=== PATIENT | female | born 1995 | race Caucasian/White ===

== ENCOUNTER 2018-01-04 15:45 | Emergency (ER) | payer OTHER, SELFPAY ==
[2018-01-04 15:46] VITALS: BP 137/89; PULSE 76; RESP 15; TEMP 36.7; O2SAT 98; BMI 20.5
--- NOTE | 2018-01-04 16:05 | ED.DCSUM_ITS ---
- ER Visit Summary Date of Service: 01/04/18 Chief Complaint: Vaginal discharge History of Present Illness: The patient is a 22 F with white foul-smelling vaginal discharge for the past month off and on, initially had some cramps but for the most part no pain. No fevers, nausea, vomiting, urinary symptoms. Last normal menstrual period was 1-2 months ago, as her best estimate, she states she is irregular. She has unprotected intercourse and is concerned about a sexually transmitted disease. Physical Examination: Well-appearing in no distress, afebrile with normal vital signs. Abdomen benign. No CVA tenderness. On pelvic, externally no lesions. Speculum exam shows a thin homogenous white-steen discharge with no evidence of cervicitis. No cervical motion tenderness. Test Results: Wet prep is negative for trichomonas, but did not apparently test for anything else. GC and chlamydia are sent. is negative. Emergency Department Course and Treatment: I am at a higher suspicion of bacterial vaginosis and IM for gonorrhea/chlamydia at this time so we will not give her empiric treatment for those, just a prescription for Flagyl and advised to follow-up. Treatment Plan: Flagyl 500 mg twice daily ?7 days Disposition: Discharge home Impression: Bacterial vaginosis This note was generated with [employer] dictation software. It may contain incorrect words, spelling, and punctuation that were not noted in review of the chart prior to signing ED Disposition - Plan for ED Patient: Disposition: Home or Assisted Living Chief Complaint: Female C/O Instructions: Vaginal Infection: Bacterial Vaginosis Prescriptions: Metronidazole [Flagyl] 500 mg PO BID #14 tab Referrals: NOT,DEFINED [NON-STAFF] - Sarmad De La Vega MD [STAFF PHYSICIAN] - 1 Week if not improving
[2018-01-04 16:51] LABS: Internal QC Validated? YES +Cl - CLEAR BKGD; Pregnancy, Urine Negative Negative
[2018-01-04 18:10] LABS: Chlamydia Trachomatis by PCR Negative (Negative); Neisserai gonorrhoeae by PCR Negative (Negative); Probe Check PASS; Sample Adequacy Control PASS; Specimen Processing Control PASS
--- NOTE | 2018-01-04 18:21 | NURSING ---
ENTERED ROOM TO D/C PT AND THE ROOM WAS EMPTY. ATTEMPTED TO CALL PT WITH NUMBER PROVIDED TO REGISTRATION AND RECORDING THIS IS A NON-WORKING NUMBER SOUNDED. D/C INSTRUCTION AND RX LEFT AT TRIAGE DESK IN CASE PT RETURNS.
== END 2018-01-04 18:22 | disposition home or self-care (01) ==
PROVIDERS: Emergency Provider Emergency Medicine
DX: N76.0 Acute vaginitis (principal)
CPT/HCPCS: 81025; 87210; 87491; 87591; 99282

== ENCOUNTER 2019-04-14 13:52 | Day surgery (SDC) | payer MEDICAID, SELFPAY ==
--- NOTE | 2019-04-05 18:08 | PCM.HP.BLA ---
History and Physical Date of Admission: 04/14/19 Pre-Op History and Physical ? HPI: The patient is a 23 year old female presenting for pre-operative visit. She is scheduled for?hysteroscopy with dilation and curettage and polyp resection, for?abnormal uterine bleeding and uterine mass on?04/14/19. ??Procedure discussed along with risks, benefits and complications. ?Other alternatives discussed for management. Consent form signed??Yes.? PAST?MEDICAL?HISTORY PAST MEDICAL HISTORY Diagnosis Date ? Acne vulgaris: Grade III (occ. Gr.IV) Inflammatory and Comedonal: Face>chest//back/shoulders 08/06/2012 ? ADHD (attention deficit hyperactivity disorder) 11/11/2011 ? Depression 05/22/2014 ? NEGATIVE MEDICAL HISTORY ? ? normal color vision ? Nevus 12/31/2011 ? Oppositional defiant disorder 09/23/11 ? VSD ? ? Dr. Pacheco--ok for all activities ?04/13/09 ? ? PAST?SURGICAL?HISTORY PAST SURGICAL HISTORY Procedure Laterality Date ? BLOOD TRANSFUSION ? 02/25/2019 ? EXTRACTION ERUPTED TOOTH/EXR ? 2015 ? ? CURRENT?MEDICATIONS Current Outpatient Medications Medication Sig Dispense Refill ? .03/03, 28, 1.5 mg-30 mcg (21)/75 mg (7) tablet Take 1 tablet by mouth once daily. ? 5 ? mirtazapine (REMERON) 15 mg tablet Take 15 mg by mouth daily at bedtime. ? 0 ? cloNIDine HCl (CATAPRES) 0.1 mg tablet Take 0.1 mg by mouth twice daily. ? ? ? buprenorphine-naloxone (SUBOXONE) 8-2 mg film Dissolve under the tongue once daily. ? ? ? medroxyPROGESTERone (PROVERA) 10 mg tablet Take 1 tablet by mouth once daily. (Patient not taking: Reported on 04/05/2019 ) 20 tablet 0 ? LORazepam (ATIVAN) 0.5 mg tab Take 1 tablet by mouth twice daily as needed (anxiety (not daily)). (Patient not taking: Reported on 03/09/2019 ) 30 tablet 0 ? No current facility-administered medications for this visit.? ? ALLERGIES:?Patient has no known allergies. ? PERSONAL HISTORY:? SOCIAL?HISTORY Social History ??Socioeconomic History ?Marital status: ?Spouse name: [place] ?Number of children: 0 ?Years of education: 8 ?Highest education level: Not on file ??Social Needs ?Financial resource strain: Not on file ?Food insecurity - worry: Not on file ?Food insecurity - inability: Not on file ?Transportation needs - medical: Not on file ?Transportation needs - non-medical: Not on file ??Occupational History ?Occupation: Unemployed ??Tobacco Use ?Smoking status: Current Every Day Smoker ?Packs/day: 0.50 ?Smokeless tobacco: Never Used ?Tobacco comment: started smoking age 18 ??Substance and Sexual Activity ?Alcohol use: Not Currently ?Drug use: Not Currently ?Types: Marijuana ?Sexual activity: Not Currently ?Partners: Male ? control/protection: None ??Other Topics ?Concerns: ?Not on file ??Social History Narrative ?Not on file ? FAMILY HISTORY:? FAMILY?HISTORY FAMILY HISTORY Problem Relation Age of Onset ? Heart Father ?murmur ? Psychiatry Brother ?adhd ? other (Other) Mother ?narcolepsy ? Diabetes Maternal Grandmother ? ? other (Rheumatic fever) Paternal Grandfather ? ? Psychiatry Maternal Grandfather ?depression ? No Known Problems Sister ? ? Cancer Paternal Grandmother ?ovarian ? No Known Problems Brother ? ? No Known Problems Brother ? ? No Known Problems Brother ? ? REVIEW OF SYMPTOMS: GENERAL: denies fevers or chills ENDOCRINOLOGY: has not been on steroids Cardiology : denies palpitations or chest pain Respiratory: denies SOB or cough Hematology: denies history of prolonged bleeding or easy bruising or VTE Allergy: Denies history of personal or family history of allergy to anesthesia ? ? PHYSICAL EXAMINATION: ? VITALS:?There were no vitals taken for this visit. ? GENERAL:??The patient is well nourished, well hydrated in no acute distress. ?, The patient is oriented to time, place, and person. NECK:?Supple. No lynphadenopathy, normal thyroid, no thyromegaly. LUNGS:?Clear to auscultation bilaterally. no wheezes, rhonchi or rales HEART:?Regular rate and rhythm, Normal heart sounds and No murmurs or gallops ? Pelvic US: 03/14/19: Report Summary: Overall impression: Anteverted uterus that is normal in size and contour The EMS in 28 mm Normal right ovary Normal left ovary No free fluid in pelvic CDS. Recommendations / therapy: Consider hysteroscopic evaluation given endometrial thickness of 28 mm. Clinical correlation. Indication: irregular periods. Menorrhagia. History: Last menstrual period: 12/12/2018. Cycle length: 7 days to 90 days. Gynecological History: Bleedin days. Abnormal. Gynecological Ultrasonography: Uterus: anteverted. Size: Longitudinal 84 mm. Anterio- posterior 47 mm. Transverse 60 mm. Volume: 124.0 ml. Endometrium thickness total: 28.2 mm. Right Ovary: visible. Outline: smooth. Morphology: polycystic. Right Ovary size: 47 mm x 33 mm x 29 mm. Volume: 23.6 ml. Left Ovary: visible. Outline: smooth. Morphology: polycystic. Left Ovary size: 37 mm x 27 mm x 23 mm. Volume: 12.0 ml. Cul de Sac / Pouch of Lukas: no free fluid visible.? ? IMPRESSION:?Abnormal uterine bleeding, chronic blood loss iron deficiency anemia, endometrial mass ? PLAN:???The risks/benefits/alternatives and personal involved for the planned?hysteroscopy dilation and curettage and uterine mass resection?were reviewed with the patient. Her questions were answered to her satisfaction and she desires to proceed. ?Consent was signed. ?I reviewed with her postop instructions and expectations. Pretreatment with Cytotec. ?Patient with opioid use disorder, will try to avoid narcotic and benzodiazepine use. ? I have reviewed and updated past medical and surgical history, medications and allergies. this history and physical was performed in my office on 04/05/19 Brianna Smart M.D.
[2019-04-14] VITALS (7 sets, daily range): BP systolic 96–122; BP diastolic 66–89; PULSE 58–70; RESP 16–18; TEMP 36.6–36.8; O2SAT 96–100; BMI 24.2
[2019-04-14 14:46] LABS: Hematocrit 29.6 % (37-47); Mean Corp Hgb Conc 30.4 g/gl (32-36); Mean Corpuscular Hgb 23.9 pg (27.0-32.0); Mean Corpuscular Volume 78.7 fL (81-99); Mean Platelet Vol. 8.2 fl (6.2-12.0); Platelet Count 332 K/mm3 (150-450); RBC Distribution Width CV 22.8 % (11.6-14.6); RBC Distribution Width SD 65.1 fl (35.1-43.9); Red Blood Count 3.76 M/mm3 (4.2-5.4); White Blood Count 3.6 K/mm3 (4.4-11.0)
[2019-04-14 14:49] LABS: Internal QC Validated? YES +Cl - CLEAR BKGD; Pregnancy, Serum, hCG Quali. NEGATIVE Negative; Scan Indicated on CBC? Y/N YES- FLAGS NOTED
--- NOTE | 2019-04-14 15:30 | EMB_PTH ---
PATIENT: YVONNE HENRY LOC: [facility] [place][id number] AGE/SX: 23/F ROOM: RE04/14/[address]: Dr. Brianna Smart MD : [id number] BED: DIS: 04/14/2019 SPEC #: [id number] RECD: 04/15/19 07:43 STATUS: PIPO PARAS #: [id number] MEAGHAN: 04/14/19 15:[address]: Brianna Smart DEPT: SURGICAL PATHOLOGY RECD BY: Trav Gross ENTERED: 04/15/19 11:43 SP TYPE: ENDOM BX/C SERGO DR: No Primary Care Phys Tissues: Endometrium, NOS Procedures: Surgery Specimen Level IV HEADER OPERATION: Hysteroscopy, D & C PRE-OP DIAGNOSIS: Abnormal uterine bleeding, chronic blood loss, iron deficiency anemia, endometrial mass TISSUE SUBMITTED: Endometrial curettings MICROSCOPIC DIAGNOSIS Endometrial curettings: Proliferative endometrium. Fragments of myometrium. Fragments of benign ecto- and endocervical mucosa with chronic inflammation and squamous metaplasia. See comment. WENDY:gregory 04/18/19 COMMENT The myometrial fragments may represent fragments of submucosal leiomyoma. Clinical correlation and appropriate follow up are necessary. MICROSCOPIC DESCRIPTION Slides are reviewed. GROSS DESCRIPTION Received in fixative is one container labeled with the patient's name and designated endometrial curettings. The specimen consists of multiple irregular fragments of woodward-pink soft tissue that in aggregate measure 3 x 2.5 x 0.2 cm. The entire specimen is submitted in one cassette. / WENDY:gregory 04/15/19 TC:5 CPT: 99186
[2019-04-14 16:26] LABS: Differential Comment SCANNED
--- NOTE | 2019-04-14 17:01 | DCINST_ITS ---
Discharge Diet: No Restrictions Discharge Activity: Return to Normal Activity, May Shower, May Take a Tub Bath - in 2 weeks. May resume sexual activity in: 2 weeks Call your doctor if your incision/area has: Sudden Increased Bleeding, Foul Smelling Discharge Call your doctor if you observe: Fever of 101 or Higher, Using more than one pad per hour Additional Instructions: no tampons, douching or intercourse for 2 weeks. No swimming for 2 weeks Allergies/Adverse Reactions: Allergies No Known Allergies Allergy (Verified 04/12/19 15:07) Medications to take at Discharge Buprenorphine HCl/Naloxone HCl [Suboxone 12 mg-3 mg Sl Film] 1 ea SL TID 04/12/19 Clonidine HCl [Clonidine HCl ER] 0.1 mg PO 4X/DAY 04/12/19 Mirtazapine [Remeron] 1.5 tab PO QHS 04/12/19 Multivit-Minerals/Folic Acid [Women's Multivitamin Gummies] 200 mcg PO DAILY 04/12/19 hydrOXYzine pamoate capsule [Vistaril pamoate capsule] 25 mg PO 4X/DAY PRN 04/12/19 Ibuprofen [Motrin] 600 mg PO Q6H PRN #60 tab 04/14/19 The following prescriptions were given: Ibuprofen [Motrin] 600 mg PO Q6H PRN #60 tab PRN Reason: Pain Transmission Status: Pending to [id number] Primary Care Physician: Care Physician,No Primary [Primary Care Provider] - Test Results: Test results from this visit will be discussed in further detail at your follow- up appointment, if applicable. Please Follow Up With: Brianna Smart MD - [phone] When: 2 weeks or as needed
--- NOTE | 2019-04-14 17:21 | OP.PCM_ITS ---
Report of Operation Date of Procedure: 04/14/19 Pre-Operative Diagnosis: AUB, anemia due to chronic blood loss, uterine mass Post-Operative Diagnosis: same Surgery/Procedure Performed:: hysteroscopy with visual curetage Description of Surgical Findings:: normal endometrial cavity and cervix and vagina thread spooler: None Type of Anesthesia:: MAC/Supplemental/Local Anesthesiologist: Estrellita Singh Special Medications: none Specimen's removed: endometrial curettings Drains: none Estimated Blood Loss (mL): 10 Fluids Replaced: 800 Description of Procedure: The patient was taken to the OR where she was prepped and draped in dorsal lithotomy position. The weighted speculum was placed in the vagina and the anterior lip of the cervix was grasped with a single-tooth tenaculum. The cervix was dilated serially with Hegar dilators. The symphion hysteroscope was placed into the uterine cavity and the above findings were noted. Bilateral tubal ostia [were] identified. The hysteroscope was removed. The Symphion device was readied and inserted. A brief curettage of the endometrial cavity was performed using the Symphony on device. The instruments were removed from the vagina. The specimen was handed off and sent to pathology. All sponge and needle counts were correct. Vaginal sweep was performed by me. The patient was awakened and taken to the recovery room in stable condition. Hysteroscopic fluid deficit was 350 cc of normal saline. There were no endometrial polyps, fibroids or focal abnormalities. There is normal atrophic appearing endometrium. Grafts/Implants Used: none - Complications none - Admit VTE Documentation VTE Present on Admission: No VTE Mechan Device Prophylaxis: SCD's VTE Pharm Prophylaxis ordered?: No Reason prophylaxis not ordered:: Procedure Not Indicated
== END 2019-04-14 19:00 | disposition home or self-care (01) ==
LOC: SDC 13:54 → AC 13:55
PROVIDERS: Referring Provider Obstetrics & Gynecology; Visit Provider Obstetrics & Gynecology
PROC: 0UB98ZZ Excision of Uterus, Via Natural or Artificial Opening Endoscopic (ICD-10-PCS; CPT 58558; principal; 2019-04-14 15:20)
DX: N92.0 Excessive and frequent menstruation with regular cycle (principal); D50.0 Iron deficiency anemia secondary to blood loss (chronic); F11.10 Opioid abuse, uncomplicated; N93.9 Abnormal uterine and vaginal bleeding, unspecified; F17.210 Nicotine dependence, cigarettes, uncomplicated; F91.3 Oppositional defiant disorder; F90.9 Attention-deficit hyperactivity disorder, unspecified type; F32.9 Major depressive disorder, single episode, unspecified
CPT/HCPCS: 00952; 58558; 84703; 85027; 86850; 86900; 88305; J7120

== ENCOUNTER 2019-08-14 03:45 | Emergency (ER) | payer MEDICAID, SELFPAY ==
[2019-04-14 14:21] VITALS: BMI 24.2
[2019-08-14 03:46] VITALS: BP 129/86; PULSE 123; RESP 15; TEMP 37.2; O2SAT 96; BMI 24.2
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
--- NOTE | 2019-08-14 04:53 | ED.RN ---
PT LEFT DEPARTMENT WITHOUT DISCHARGE INSTRUCTIONS
== END 2019-08-14 04:54 | disposition home or self-care (01) ==
PROVIDERS: Emergency Provider Emergency Medicine
DX: S09.90XA Unspecified injury of head, initial encounter (principal); Y04.2XXA Assault by strike against or bumped into by another person, initial encounter; Y92.9 Unspecified place or not applicable; Y99.9 Unspecified external cause status; F17.200 Nicotine dependence, unspecified, uncomplicated
CPT/HCPCS: 99282

== ENCOUNTER → 2020-04-13 | Outpatient (CLI) | payer MEDICAID, SELFPAY ==
[2020-04-13 09:04] VITALS: BMI 24.2
--- NOTE | 2020-04-13 09:37 | RAD_ITS ---
STUDY: X-RAY - LEFT FOOT CLINICAL: Female, 24 years old. FOOT AND ANKLE PAIN AND SWELLING, NO TRAUMA TECHNIQUE: 3 view(s) of the foot. COMPARISON: None. FINDINGS: Normal talus, calcaneus, and tarsal bones. Normal visualized subtalar, talonavicular, calcaneocuboid, tarsal and tarsometatarsal articulations. Normal metatarsi. Normal metatarsophalangeal joint of the great toe. Normal tibial and fibular sesamoid bones. Normal interphalangeal joint of the great toe. Normal phalanges of the great toe. Normal second through fifth metatarsophalangeal joints. Normal interphalangeal joints and phalanges of the lesser toes. Diffuse soft tissue swelling. RAD/Foot min 3 Views IMPRESSION: Diffuse soft tissue swelling. Electronically Signed: Angel Tejeda, at 9:52 EDT , Service support ,
--- NOTE | 2020-04-13 09:37 | RAD_ITS ---
STUDY: X-RAY - LEFT ANKLE REASON FOR EXAM: Female, 24 years old. FOOT AND ANKLE SWELLING AND PAIN, NO TRAUMA TECHNIQUE: 3 view(s) of the ankle. COMPARISON: None. FINDINGS: Normal visualized distal tibia and fibula. Normal medial and lateral malleoli. Normal tibiotalar articulation and ankle mortise. Normal visualized talus and calcaneus. The visualized subtalar, talonavicular, calcaneocuboid and tarsal articulations are normal. Diffuse soft tissue swelling. RAD/Ankle min 3 Views IMPRESSION: Diffuse soft tissue swelling. Electronically Signed: Angel Tejeda, at 9:52 EDT , Service support ,
[2020-04-13 15:17] LABS: Absolute Neutrophil Count 3.2 X10^3/uL (2.0-7.7); Basophil# 0.06 X10^3/uL; Eosinophil# 0.45 X10^3/uL; Eosinophils% 7.5 % (0-5); Hematocrit 28.1 % (37-47); Hemoglobin 8.3 g/dL (12.0-15.0); Lymphocyte % 28.4 % (19-41); Mean Corp Hgb Conc 29.5 g/dL (32-36); Mean Corpuscular Hgb 27.5 pg (27.0-32.0); Mean Platelet Vol. 8.5 fl (6.2-12.0); Monocyte# 0.54 X10^3/uL; NRBC Flagged by Analyzer 0 % (0-5); Neutrophil # 3.22 X10^3/uL (2.7-7.7); Neutrophil % 53.9 % (47-70); Platelet Count 508 K/mm3 (150-450); RBC Distribution Width CV 17.4 % (11.6-14.6); Red Blood Count 3.02 M/mm3 (4.2-5.4)
[2020-04-13 15:33] LABS: Erythrocyte Sedimentation Rate 77 mm/hr (0-20)
[2020-04-13 15:37] LABS: ALB/GLOB Ratio 0.4 RATIO (0.9-2.4); AST(SGOT) 17 U/L (15-37); Alanine Aminotransfer ALT/SGPT 13 U/L (13-56); Albumin, Serum 2.8 g/dL (3.2-5.0); Alkaline Phosphatase 36 U/L (45-117); Anion Gap 8 (5-15); BUN 11 mg/dL (7-18); BUN/Creat Ratio 20.1 RATIO (10-20); Calcium,Total 10.7 mg/dL (8.5-10.1); Chloride 99 mmol/L (98-107); Creatinine, Serum 0.55 mg/dL (0.55-1.02); EST Glomerular Filtration Rate 144 mL/min (>60); Est Glom Filt Rate - Afr Amer 175 mL/min (>60); Globulin 6.7 g/dL (2.2-4.2); Glucose 105 mg/dL (74-106); Potassium 3.8 mmol/L (3.5-5.1); Protein, Total 9.5 g/dL (6.4-8.2); Sodium Level 135 mmol/L (136-145)
[2020-04-16 11:11] LABS: ANTINUCLEAR ANTIBODIES DIRECT Negative (Negative)
[2020-04-19 14:33] LABS: HLA B27 Negative (.)
== END | disposition home or self-care (01) ==
PROVIDERS: Referring Provider Physician Assistant; Visit Provider Physician Assistant
DX: M25.572 Pain in left ankle and joints of left foot (principal); M25.472 Effusion, left ankle
CPT/HCPCS: 36415; 73610; 73630; 80053; 81374; 85025; 85652; 86038; 86140

== ENCOUNTER → 2020-04-19 | Outpatient (CLI) | payer MEDICAID, SELFPAY ==
[2020-04-13 09:04] VITALS: BMI 24.2
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
== END | disposition home or self-care (01) ==
LOC: CT 17:43
PROVIDERS: Referring Provider Physician Assistant; Visit Provider Physician Assistant
DX: M25.472 Effusion, left ankle (principal); M25.572 Pain in left ankle and joints of left foot
CPT/HCPCS: 73700

== ENCOUNTER 2021-03-05 14:45 | Inpatient (IN) | payer MEDICAID, SELFPAY ==
[2020-07-31 15:14] VITALS: BMI 23.0
[2021-03-05] VITALS (12 sets, daily range): BP systolic 86–106; BP diastolic 52–64; PULSE 110–136; RESP 18–36; TEMP 37.7–39.1; O2SAT 94–100; BMI 18.3; BMI 24.5
--- NOTE | 2021-03-05 15:02 | EKG12_ITS ---
Test Reason : SOB Blood Pressure : / mmHG Vent. Rate : 123 BPM Atrial Rate : 123 BPM P-R Int : 114 ms QRS Dur : 082 ms QT Int : 306 ms P-R-T Axes : 060 -06 038 degrees QTc Int : 438 ms Sinus tachycardia Possible Biatrial Enlargement Poor R wave progression Borderline ECG Confirmed by JANIA COTTER, RANDOLPH ([id number]), dictionary editor MELISSA ANDRADE ([id number]) on 03/07/2021 12:32:08 PM Referred By: SUSAN Confirmed By:RANDOLPH DYKES MD
--- NOTE | 2021-03-05 15:07 | EDS_ITS ---
HPI History of Present Illness Chief Complaint: Shortness of Breath Informant: patient Onset/Context/Timing Onset: Days Context: Gradual Onset Current Severity: Moderate Maximum Severity: Moderate Narrative Narrative: Patient reports a 3 to 4-day history of bilateral lower extremity edema and pain along with general weakness, cough, and shortness of breath. She states has not been able to get up and take care of herself because of her lower leg swelling. She finally called family today to come help her. She denies any known exposure to Covid. She does have a pacemaker that she states was placed approximately a year ago after an infection attacked my whole body. [facility] Medical History (Updated 03/05/21 @ 22:[address] Sue Lerner MD) Anxiety Depression Osteoporosis Pacemaker Smoker Substance abuse Allergy/AdvReac Type Severity Reaction Status Date / Time No Known Allergies Allergy Verified 03/05/21 14:45 Social History (Updated 03/05/21 @ 15:[address] Sue Lerner MD) Smoking Status: Current every day smoker tobacco type: cigarettes alcohol intake: never substance use type: does not use ROS ROS ED Constitutional Constitutional ED: Denies chills or fever(s) Eyes Eyes: Denies change in vision ENT ENT ED: Denies sore throat Cardiovascular Cardiovascular: Denies chest pain Respiratory/Chest Respiratory/Chest: Reports cough and dyspnea Gastrointestinal Gastrointestinal: Denies abdominal pain, diarrhea, nausea or vomiting Genitourinary Genitourinary ED: Denies dysuria Musculoskeletal Musculoskeletal: Reports arthralgias, myalgias and other Details: Lower extremity pain and swelling Integumentary Denies rash Neurologic Neurologic: Denies headache(s) or weakness Psychiatric Psychiatric: Denies anxiety or depression Endocrine Endocrinology: Denies polydipsia or polyuria Allergic/Immunologic Allergic/Immunologic ED: Denies urticaria EXAM Physical Exam Const Vital Signs: 03/05/21 14:47 03/05/21 15:30 03/05/21 16:50 Temperature 100.1 F H 100.2 F H Temperature Source Temporal Oral Pulse Rate 136 H 120 H Respiratory Rate 18 28 H Respiratory Effort Non-Labored Respiratory Pattern Tachypnea Blood Pressure 95/62 86/59 L Blood Pressure Mean 73 68 Pulse Ox 97 100 Oxygen Delivery Method Room Air Room Air 03/05/21 18:00 03/05/21 19:31 03/05/21 20:13 Temperature 100.2 F H 100.4 F H 99.9 F H Temperature Source Oral Oral Oral Pulse Rate 110 H 118 H 110 H Respiratory Rate 30 H 20 H 20 H Respiratory Effort Respiratory Pattern Blood Pressure 96/55 L 91/52 L 91/58 L Blood Pressure Mean 68 65 69 Pulse Ox 96 95 95 Oxygen Delivery Method Room Air Room Air Room Air 03/05/21 20:14 Temperature 99.9 F H Temperature Source Oral Pulse Rate 110 H Respiratory Rate 20 H Respiratory Effort Respiratory Pattern Blood Pressure 91/58 L Blood Pressure Mean 69 Pulse Ox 95 Oxygen Delivery Method Room Air Positive well nourished and unkempt General Appearance ED: unkempt HEENT Reports normocephalic and head/scalp atraumatic Eyes PERRL and EOMs intact bilaterally Neck supple Chest Wall inspection of chest normal and palpation of chest normal Resp normal respiratory effort and clear to auscultation bilaterally Cardio regular rhythm Rate: tachycardic GI non-tender Auscultation: hypoactive bowel sounds Palpation: soft Extremity Extremity Narrative: 2+ bilateral lower extremity edema, symmetric. Palpable distal pulses. 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 EKG, chest x-ray, labs, Covid test all obtained. Patient was given Tylenol for fever. Lab Data Attestation: I reviewed the patient's lab results. Labs: Laboratory Results - last 24 hr 03/05/21 03/05/21 03/05/21 16:55 17:15 17:15 WBC 12.0 H RBC 4.09 L Hgb 11.9 L Hct 34.7 L MCV 84.8 MCH 29.1 MCHC 34.3 RDW Std Deviation 41.8 RDW Coeff of Yaima 13.5 Plt Count 39 L* MPV TNP Neut % (Auto) Not Reportable Absolute Neuts (auto) 10.6 H Absolute Lymphs (auto) 0.72 L Total Counted 100 Neutrophils % (Manual) 83 H Band Neutrophils % 5 Lymphocytes % (Manual) 6 L Monocytes % (Manual) 4 Myelocytes % 1 H Plasma Cell % (Manual) 1 Diff Path Review May foll Platelet Estimate MKD DEC D-Dimer Quant (PE/DVT) 14.36 H* Sodium Potassium Chloride Carbon Dioxide Anion Gap BUN Creatinine Estim Creat Clear Calc Est GFR (MDRD) Af Amer Est GFR (MDRD) Non-Af BUN/Creatinine Ratio Glucose Calcium Total Bilirubin Direct Bilirubin AST ALT Alkaline Phosphatase Troponin I Total Protein Albumin Globulin Serum , Qual NEGATIVE 03/05/21 17:15 WBC RBC Hgb Hct MCV MCH MCHC RDW Std Deviation RDW Coeff of Yaima Plt Count MPV Neut % (Auto) Absolute Neuts (auto) Absolute Lymphs (auto) Total Counted Neutrophils % (Manual) Band Neutrophils % Lymphocytes % (Manual) Monocytes % (Manual) Myelocytes % Plasma Cell % (Manual) Diff Path Review Platelet Estimate D-Dimer Quant (PE/DVT) Sodium 129 L Potassium 3.1 L Chloride 95 L Carbon Dioxide 23.0 Anion Gap 11 BUN 34 H Creatinine 1.03 H Estim Creat Clear Calc 65.77 Est GFR (MDRD) Af Amer 84 Est GFR (MDRD) Non-Af 69 BUN/Creatinine Ratio 33.0 H Glucose 125 H Calcium 8.2 L Total Bilirubin 3.50 H Direct Bilirubin 2.27 H AST 69 H ALT 25 Alkaline Phosphatase 52 Troponin I 0.016 Total Protein 6.8 Albumin 2.4 L Globulin 4.4 H Serum , Qual Radiography Chest X-Ray - ED: 1 View, Read by ED Physician, Right Infiltrate and Left Infiltrate Diagnostic Testing: Radiology Impression Venous Doppler Study 03/05/21 15:07 Interpretation Summary No evidence for acute deep venous thrombosis bilateral lower extremities with patent and compressible bilateral great saphenous veins. Abbreviated COVID-19 protocol utilized Ordering Physician: Sue Lerner Performed By: Nicol Chow, RVT Chest X-Ray 03/05/21 16:25 IMPRESSION: Suspect bilateral pneumonia and CT may be useful. Electronically Signed: Chano Gibbons MD at 16:56 EDT Tel , Service support , Chest CTA 03/05/21 18:26 IMPRESSION: CTA chest examination, without a demonstrated pulmonary embolism or arterial dissection. Bilateral nodular infiltrates. Electronically Signed: Kunal Hinds MD at 19:56 EDT , Service support , EKG Initial EKG: Attestation: I personally reviewed and interpreted this EKG as follows: Interpretation: Sinus Tachycardia (Sinus tach at 123. No acute ST change.) Treatment and Re-Evaluation Comments:: Patient was a extremely difficult IV stick and this caused a delay in obtaining blood work. Covid test returned negative. Bilateral lower extremity ultrasounds revealed no evidence of DVT. Patient is hyponatremic, hypokalemic. Patient is given oral potassium. CTA of the chest is obtained secondary to elevated D-dimer. This reveals bilateral pneumonia. No evidence of PE. Patient is treated with antibiotics and IV fluids. Patient discussed with hospitalist for admission. Discharge Plan Triage Chief Complaint: Shortness of Breath ED Provider: Sue Lerner Dx/Rx/DC Orders Clinical Impression: Pneumonia Primary Care Provider: Care Physician,No Primary Disposition Disposition: [facility]
--- NOTE | 2021-03-05 15:07 | VDLE_ITS ---
Reason For Study: Pain RIGHT LEFT GSV is normal. GSV is normal. CFV, FV and PopV are compressible. CFV, FV and PopV are compressible. T/P Trunk is compressible. T/P Trunk is compressible. PTV is compressible. PTV is compressible. RT PerV is compressible. LT PerV is compressible. Procedure This is a venous duplex using B-mode, color flow and spectral Doppler. Exam performed portable in ED. The exam was abbreviated due to the COVID 19 protocol. A preliminary report was called and/or faxed to ED. VL/Venous Duplex US - Devyn Extrem Interpretation Summary No evidence for acute deep venous thrombosis bilateral lower extremities with p atent and compressible bilateral great saphenous veins. Abbreviated COVID-19 protocol uti lized Ordering Physician: Sue Lernre Performed By: Nicol Chow RVT
--- NOTE | 2021-03-05 15:10 | NURSING ---
NO OLD EKGS
[2021-03-05] MEDS: Acetaminophen 325 MG Tablet 650 MG PO ×2 (15:25→20:50)
--- NOTE | 2021-03-05 16:23 | ED.RN ---
unable to get iv access. pt hx iv drug abuse and veins scarred up. 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 pt child like in demeanor. wanting to hold mothers hand while getting poked. lt foot red swollen and hot to touch. b/l dupplex being done at this time. pt denies shooting up in foot.
--- NOTE | 2021-03-05 16:25 | RAD_ITS ---
STUDY: X-RAY CHEST REASON FOR EXAM: Female, 25 years old. sob TECHNIQUE: Single AP portable view of the chest. COMPARISON: None. FINDINGS: Status post median sternotomy. Patchy alveolar opacities in both lungs worrisome for pneumonia. CT may be useful. There is no demonstrated pleural abnormality. Normal size heart. Normal mediastinum and shaw. Normal visualized pulmonary arteries. Normal visualized aortic arch and descending thoracic aorta. Normal visualized thoracic spine. Normal visualized ribs, clavicles, and shoulders. There is no demonstrated abnormality of the visualized soft tissue structures of the upper abdomen. RAD/Chest 1 View (Portable) IMPRESSION: Suspect bilateral pneumonia and CT may be useful. Electronically Signed: Chano Gibbons MD at 16:56 EDT Tel , Service support ,
[2021-03-05] MEDS: 0.9% Normal Saline 1,000 ML 250 ML IV ×2 (17:21→21:03)
[2021-03-05 17:36] LABS: Internal QC Validated? YES +Cl - CLEAR BKGD; Pregnancy, Serum, hCG Quali. NEGATIVE Negative
[2021-03-05 17:40] LABS: Hematocrit 34.7 % (37-47); Hemoglobin 11.9 g/dL (12.0-15.0); Mean Corp Hgb Conc 34.3 g/dL (32-36); Mean Corpuscular Hgb 29.1 pg (27.0-32.0); Mean Corpuscular Volume 84.8 fL (81-99); POSITIVE COUNT YES; POSITIVE MORPHOLOGY YES; RBC Distribution Width CV 13.5 % (11.6-14.6); RBC Distribution Width SD 41.8 fl (35.1-43.9); Red Blood Count 4.09 M/mm3 (4.2-5.4)
[2021-03-05 17:59] LABS: AST(SGOT) 69 U/L (15-37); Alanine Aminotransfer ALT/SGPT 25 U/L (13-56); Albumin, Serum 2.4 g/dL (3.2-5.0); Alkaline Phosphatase 52 U/L (45-117); Anion Gap 11 (5-15); BUN 34 mg/dL (7-18); Bilirubin, Direct 2.27 mg/dL (0.00-0.30); Calcium,Total 8.2 mg/dL (8.5-10.1); Chloride 95 mmol/L (98-107); Creatinine, Serum 1.03 mg/dL (0.55-1.02); EST Glomerular Filtration Rate 69 mL/min (>60); Est Glom Filt Rate - Afr Amer 84 mL/min (>60); Estimated Creatinine Clearance 65.77 ml/min; Globulin 4.4 g/dL (2.2-4.2); Glucose 125 mg/dL (74-106); Potassium 3.1 mmol/L (3.5-5.1); Protein, Total 6.8 g/dL (6.4-8.2); Sodium Level 129 mmol/L (136-145)
[2021-03-05 18:19] LABS: Neutrophil-Band 5 % (0-5); Neutrophil-Segmented 83 % (47-70); Total Cells Counted 100 (MANUAL DIFF)
[2021-03-05] MEDS: Potassium Chloride Oral Tablet 20 MEQ 40 MEQ PO (18:19)
[2021-03-05 18:20] LABS: Lymphocyte 6 % (19-41); Monocyte 4 % (0-10); Myelocyte 1 % (0-0); Plasma Cell 1 %
[2021-03-05 18:22] LABS: D-Dimer Quantitative (DVT/PE) 14.36 FEU/ug/m (0.27-0.49); Platelet Count 39 K/mm3 (150-450)
[2021-03-05 18:23] LABS: Differential Indicated MANUAL DIFF
[2021-03-05 18:24] LABS: Absolute Lymphocyte Count 0.72 X10^3/uL (0.83-4.51); Absolute Neutrophil Count 10.6 X10^3/uL (2.0-7.7)
--- NOTE | 2021-03-05 18:26 | CT_ITS ---
STUDY: CTA CHEST REASON FOR EXAM: Female, 25 years old. Shortness of breath. Leg swelling RADIATION DOSAGE (If Supplied By Facility): CTDIvol = ( 6.31 ) mGy, DLP = ( 107.01 ) mGycm TECHNIQUE: The examination was performed with the intravenous administration of 75mL Isovue-370. Post-processing of the angiographic images was performed, with multiplanar reformation and 3D reconstruction. Individualized dose optimization techniques were used for this CT. COMPARISON: Chest x-ray FINDINGS: Normal enhancement of the main pulmonary artery and right and left pulmonary arteries. Normal enhancement of the bilateral peripheral pulmonary arteries. There is no demonstrated pulmonary embolism. There is prominence of the main pulmonary arteries without peripheral pulmonary vascular congestion, suggesting pulmonary hypertension. Normal thoracic aorta and visualized great vessels. There is no demonstrated aortic dissection. Sternal cerclage wires are present from a prior sternotomy. There is tricuspid valve replacement. Normal mediastinum. Normal hilar regions. Normal visualized trachea and bronchi. The lungs are well expanded. There are moderate patchy nodular groundglass and airspace opacities of the lungs Normal pleura. Normal chest wall structures. Normal osseous structures. Normal visualized upper abdomen. CT/CTA Chest W/WO Contrast IMPRESSION: CTA chest examination, without a demonstrated pulmonary embolism or arterial dissection. Bilateral nodular infiltrates. Electronically Signed: Kunal Hinds MD at 19:56 EDT , Service support ,
[2021-03-05 18:39] LABS: Platelet Estimate MKD DEC (ADEQ)
--- NOTE | 2021-03-05 18:42 | ED.RN ---
pt with vaginal bleeding obs when wiped of bright red and dark red/tea colored urine. dr. hawkins aware
[2021-03-05 22:05] LABS: Lactic Acid 3.3 mmol/L (0.4-1.9)
--- NOTE | 2021-03-05 22:54 | PCM.HP.STD ---
HPI - General General Date of Admission: 03/05/21 Date of Service: 03/05/21 Chief Complaint: Shortness of breath, generalized weakness HPI Narrative YVONNE HENRY, is a 25 F who presents to the emergency room at [facility] with a chief complaint of shortness of breath and severe weakness. Patient denies any fevers or chills, she also denied any productive cough. Patient did complain of what she felt was severe swelling of her legs and feet, she initially denied using any illicit drugs, she stated she had a past history of drug abuse. Unfortunately, patient admitted to this examiner that she uses fentanyl daily (snorts it)-her last usage was yesterday. Patient also states she uses methamphetamines on a chronic basis. Patient states she is supposed to be on several medications but she has not seen a doctor in quite some time and does not take any prescription medications on a chronic basis. Labs obtained in the emergency room showed an elevated white blood cell count at 12, hemoglobin was 11.9, platelet count was 39,000. Patient's D-dimer was elevated at 14.36, sodium was low at 129, potassium was low at 3.1, BUN was elevated at 34, chloride was 95, her direct bilirubin was elevated at 2.27, AST was elevated at 69, and her lactic acid was elevated at 3.3. Chest x-ray which was obtained was worrisome for bilateral pneumonia, CTA of the chest was performed that showed no evidence of pulmonary emboli, bilateral pneumonia was noted, and patient had a venous duplex of her legs which did not show evidence of VTE. Patient was admitted to ICU for severe sepsis from bilateral pneumonia, I have chosen at this time to continue her on Zosyn, she was given a dose of vancomycin in the emergency room. Critical care will see the patient tomorrow, patient told me that she desires detox from her fentanyl, I will place her on Subutex and she will need to be seen by addiction social organization professor. [facility] Medical History (Updated 03/05/21 @ 23:[address] Dannie Leach DO) Anxiety Depression History of cardiac pacemaker Osteoporosis Pacemaker Smoker Substance abuse Allergy/AdvReac Type Severity Reaction Status Date / Time No Known Allergies Allergy Verified 03/05/21 14:45 no surgical history (History of pacemaker insertion) Social History Smoking Status: Current every day smoker tobacco type: cigarettes alcohol intake: never substance use type: does not use ROS Constitutional Constitutional: Reports weakness; Denies anorexia, change in weight, fever(s) or night sweats Eyes Eyes: Denies blurry vision, change in vision, discharge from eye(s) or eye pain Cardiovascular Cardiovascular: Reports dyspnea on exertion and edema; Denies chest pain, claudication or palpitations Respiratory/Chest Respiratory/Chest: Reports dyspnea, shortness of breath at rest and shortness of breath with exertion; Denies cough or hemoptysis Gastrointestinal Gastrointestinal: Denies abdominal pain, constipation, diarrhea, hematemesis, hematochezia, melena, nausea or vomiting Genitourinary Genitourinary: Denies dysuria, hematuria, urinary frequency, urinary hesitancy, urinary incontinence or urinary urgency Musculoskeletal Musculoskeletal: Denies back pain, joint pain, joint stiffness, joint swelling, myalgias or neck pain Neurologic Neurologic: Denies abnormal gait, abnormal speech, dizziness, focal weakness, headache(s), loss of vision, numbness, other visual disturbances, paresthesias, syncope or tingling Psychiatric Psychiatric: Reports anxiety and depression; Denies cognitive impairment, irritability, mood swings or suicidal ideation Endocrine Endocrinology: Denies change in body appearance, cold intolerance, excessive sweating, heat intolerance, polydipsia or polyuria Hematologic/Lymphatic Hematologic/Lymphatic: Denies none, anemia, easy bleeding, easy bruising or lymphadenopathy Allergic/Immunologic Allergic/Immunologic: Denies rhinitis, urticaria, eczemia or asthma Vital Signs Vital Signs Vital Signs: 03/05/21 14:47 03/05/21 15:30 03/05/21 16:50 Temperature 100.1 F H 100.2 F H Temperature Source Temporal Oral Pulse Rate 136 H 120 H Respiratory Rate 18 28 H Respiratory Effort Non-Labored Respiratory Pattern Tachypnea Blood Pressure 95/62 86/59 L Blood Pressure Mean 73 68 Pulse Ox 97 100 Oxygen Delivery Method Room Air Room Air 03/05/21 18:00 03/05/21 19:31 03/05/21 20:13 Temperature 100.2 F H 100.4 F H 99.9 F H Temperature Source Oral Oral Oral Pulse Rate 110 H 118 H 110 H Respiratory Rate 30 H 20 H 20 H Respiratory Effort Respiratory Pattern Blood Pressure 96/55 L 91/52 L 91/58 L Blood Pressure Mean 68 65 69 Pulse Ox 96 95 95 Oxygen Delivery Method Room Air Room Air Room Air 03/05/21 20:14 03/05/21 21:44 03/05/21 22:21 Temperature 99.9 F H 101.4 F H 102.4 F H Temperature Source Oral Oral Oral Pulse Rate 110 H 120 H 122 H Respiratory Rate 20 H 20 H 20 H Respiratory Effort Respiratory Pattern Blood Pressure 91/58 L 101/64 102/59 L Blood Pressure Mean 69 76 73 Pulse Ox 95 94 95 Oxygen Delivery Method Room Air Room Air Room Air Weight Weight: 49.895 kg Body Mass Index (BMI) 18.3 Physical Exam Const alert, oriented x3, no apparent distress and average body habitus General Appearance: cooperative, well kempt and well developed Orientation / Consciousness: awake, oriented to person, oriented to place and oriented to time HEENT normocephalic, head/scalp atraumatic, hearing grossly normal bilaterally and moist oral mucous membranes Eyes PERRL, EOMs intact bilaterally and conjunctivae normal Neck nuchal rigidity, supple, no JVD, thyroid normal and no carotid bruits General: trachea midline Resp normal respiratory effort, no retractions, no use of accessory muscles and clear to auscultation bilaterally Auscultation: Negative for rales, rhonchi or wheezes Cardio regular rate, regular rhythm, no murmurs, no rub and no gallops Cardio Narrative: Patient has tachycardia GI normal to inspection, nondistended, normoactive bowel sounds, soft to palpation, non-tender and non-distended Extremity Extremity Narrative: Mild edema is noted in the feet bilaterally, no appreciable edema is noted in the legs. Both legs were tender to palpation-exquisitely tender without noticeable reason Skin no rashes or lesions noted, no wounds, no jaundice and no petechiae General Skin Exam: no breakdown Neuro oriented x3, CN's II-XII intact bilaterally, no focal motor deficits and no sensory deficits noted Sensorium / Orientation: awake and alert Speech: speech normal Psych thought process normal Psych Narrative: Patient exhibits mild anxiety on examination Mood & Affect: anxious Lab / Micro Data Result Diagrams: 03/05/21 17:15 03/05/21 17:15 Labs: Laboratory Results - last 24 hr 03/05/21 03/05/21 03/05/21 16:55 17:15 17:15 WBC 12.0 H RBC 4.09 L Hgb 11.9 L Hct 34.7 L MCV 84.8 MCH 29.1 MCHC 34.3 RDW Std Deviation 41.8 RDW Coeff of Yaima 13.5 Plt Count 39 L* MPV TNP Neut % (Auto) Not Reportable Absolute Neuts (auto) 10.6 H Absolute Lymphs (auto) 0.72 L Total Counted 100 Neutrophils % (Manual) 83 H Band Neutrophils % 5 Lymphocytes % (Manual) 6 L Monocytes % (Manual) 4 Myelocytes % 1 H Plasma Cell % (Manual) 1 Diff Path Review May foll Platelet Estimate MKD DEC D-Dimer Quant (PE/DVT) 14.36 H* Sodium Potassium Chloride Carbon Dioxide Anion Gap BUN Creatinine Estim Creat Clear Calc Est GFR (MDRD) Af Amer Est GFR (MDRD) Non-Af BUN/Creatinine Ratio Glucose Lactic Acid Calcium Total Bilirubin Direct Bilirubin AST ALT Alkaline Phosphatase Troponin I Total Protein Albumin Globulin Serum , Qual NEGATIVE 03/05/21 03/05/21 17:15 21:20 WBC RBC Hgb Hct MCV MCH MCHC RDW Std Deviation RDW Coeff of Yaima Plt Count MPV Neut % (Auto) Absolute Neuts (auto) Absolute Lymphs (auto) Total Counted Neutrophils % (Manual) Band Neutrophils % Lymphocytes % (Manual) Monocytes % (Manual) Myelocytes % Plasma Cell % (Manual) Diff Path Review Platelet Estimate D-Dimer Quant (PE/DVT) Sodium 129 L Potassium 3.1 L Chloride 95 L Carbon Dioxide 23.0 Anion Gap 11 BUN 34 H Creatinine 1.03 H Estim Creat Clear Calc 65.77 Est GFR (MDRD) Af Amer 84 Est GFR (MDRD) Non-Af 69 BUN/Creatinine Ratio 33.0 H Glucose 125 H Lactic Acid 3.3 H* Calcium 8.2 L Total Bilirubin 3.50 H Direct Bilirubin 2.27 H AST 69 H ALT 25 Alkaline Phosphatase 52 Troponin I 0.016 Total Protein 6.8 Albumin 2.4 L Globulin 4.4 H Serum , Qual Micro: Microbiology 03/05/21 15:20 SARS-CoV-2 Antigen (Rapid) - Final Interface Orders Radiology Impression Venous Doppler Study 03/05/21 15:07 Interpretation Summary No evidence for acute deep venous thrombosis bilateral lower extremities with patent and compressible bilateral great saphenous veins. Abbreviated COVID-19 protocol utilized Ordering Physician: Sue Lerner Performed By: Nicol Chow T Chest X-Ray 03/05/21 16:25 IMPRESSION: Suspect bilateral pneumonia and CT may be useful. Electronically Signed: Chano Gibbons MD at 16:56 EDT Tel , Service support , Chest CTA 03/05/21 18:26 IMPRESSION: CTA chest examination, without a demonstrated pulmonary embolism or arterial dissection. Bilateral nodular infiltrates. Electronically Signed: Kunal Hinds MD at 19:56 EDT , Service support , Assessment & Plan Assessment/Plan (1) Pneumonia: PLAN: 1. Severe sepsis secondary to bilateral community-acquired pneumonia-patient will be admitted to ICU, she will be maintained on Zosyn, labs will be monitored, she will be seen in consultation by critical care #2 acute opiate withdrawal-patient will be placed on Subutex and as needed medication for opiate withdrawal #3 thrombocytopenia-probably secondary to severe sepsis, labs will be monitored #4 hyponatremia-etiology unclear, recheck labs #5 hypokalemia-labs will be rechecked #6 mild dehydration-IV fluids will be administered #7 polysubstance abuse #8 elevated liver enzymes-possibly secondary to hepatitis, patient will need a work-up concerning this if the liver enzymes continue to be elevated
[2021-03-05] MEDS: 0.9% Normal Saline 1,000 ML 150 ML IV (23:43)
[2021-03-05] MEDS: Methocarbamol 750 MG Tablet 1500 MG PO (23:49)
[2021-03-05] MEDS: Mirtazapine 30 MG Tablet PO (23:49)
[2021-03-05] MEDS: traZODone 100 MG Tablet PO (23:49)
[2021-03-05] MEDS: Gabapentin 300 MG Capsule PO (23:49)
[2021-03-05] MEDS: hydrOXYzine PAM 25 MG Capsule 50 MG PO (23:51)
[2021-03-05] MEDS: Heparin Injection (Vial) 5,000 UNIT/ML VIAL 5000 UNIT SC (23:55)
[2021-03-06] VITALS (26 sets, daily range): BP systolic 88–123; BP diastolic 41–81; PULSE 106–129; RESP 28–51; TEMP 36.5–37.3; O2SAT 90–99
[2021-03-06 00:34] LABS: Red Cell Morphology NORM C+C NORMAL (NORM C&C)
[2021-03-06] MEDS: Buprenorphine HCl 2 MG TAB.SUBL 4 MG SL ×3 (00:35→15:29)
[2021-03-06] MEDS: 0.9% Normal Saline 1,000 ML 999 ML IV (01:17)
[2021-03-06 01:36] LABS: Reflex Lactate? Y
[2021-03-06 02:09] LABS: Lactic Acid 2.1 mmol/L (0.4-1.9)
[2021-03-06 02:17] LABS: Reflex Lactate? N
[2021-03-06 05:17] LABS: Mean Corp Hgb Conc 33.3 g/dL (32-36); Mean Corpuscular Hgb 28.9 pg (27.0-32.0); Mean Corpuscular Volume 86.7 fL (81-99); POSITIVE COUNT YES; POSITIVE MORPHOLOGY YES; RBC Distribution Width SD 44.5 fl (35.1-43.9); Red Blood Count 3.46 M/mm3 (4.2-5.4); White Blood Count 11.4 K/mm3 (4.4-11.0)
[2021-03-06 05:20] LABS: Differential Indicated MANUAL DIFF; Platelet Count 28 K/mm3 (150-450)
[2021-03-06 05:36] LABS: Anion Gap 10 (5-15); BUN 21 mg/dL (7-18); BUN/Creat Ratio 25.7 RATIO (10-20); Calcium,Total 7.3 mg/dL (8.5-10.1); Chloride 107 mmol/L (98-107); Creatinine, Serum 0.82 mg/dL (0.55-1.02); EST Glomerular Filtration Rate 90 mL/min (>60); Est Glom Filt Rate - Afr Amer 109 mL/min (>60); Estimated Creatinine Clearance 75.33 ml/min; Glucose 110 mg/dL (74-106); Potassium 3.3 mmol/L (3.5-5.1); Sodium Level 137 mmol/L (136-145)
[2021-03-06] MEDS: 0.9% Normal Saline 1,000 ML 150 ML IV ×2 (05:41→12:34)
[2021-03-06 05:51] LABS: Lymphocyte 9 % (19-41); Metamyelocyte 1 % (0-1); Monocyte 7 % (0-10); Myelocyte 1 % (0-0); Neutrophil-Band 8 % (0-5); Neutrophil-Segmented 74 % (47-70); Total Cells Counted 100 (MANUAL DIFF)
[2021-03-06 05:52] LABS: Absolute Lymphocyte Count 1.02 X10^3/uL (0.83-4.51); Absolute Neutrophil Count 9.3 X10^3/uL (2.0-7.7); Hypochromasia 1+; Microcytosis 1+; Ovalocyte 1+; Platelet Estimate MKD DEC (ADEQ); Polychromasia RARE
--- NOTE | 2021-03-06 05:57 | ECHOCS_ITS ---
Reason For Study: Admitted with BActeremia Procedure This was a 2D Doppler, Color Flow transthoracic echocardiogram. The study was technically difficult. Contrast injection was performed. Bubble study performed. Exam performed portable in ICU/CCU. Left Ventricle Normal LV size. Left ventricular systolic function is normal. The estimated ejection fraction is 65 %. No regional wall motion abnormalities noted. Right Ventricle Normal RV size. 1.1 x 0.9 cm mobile mass attached to the region of the moderator band in the right ventricle. Cannot completely exclude vegetation. Normal systolic function. Atria Normal left atrium. Normal right atrium. Patent foramen ovale. Mitral Valve Normal mitral valve. Trivial eccentric mitral valve insufficiency. Tricuspid Valve Mild (1+) tricuspid valve insufficiency. An annuloplasty ring is noted in the tricuspid position. Aortic Valve Trisinus/trileaflet aortic valve. Pulmonic Valve Normal pulmonic valve. Great Vessels Normal aortic root. The pulmonary artery is normal size. Normal inferior vena cava. Pericardium/Pleural No pericardial effusion. Medication Diluted definity 2ml given slow IV push to enhance endocardial definition. Performed a rapid injection of agitated mix of 9 cc saline and 1cc air to assess for atrial septal defect. MMode/2D Measurements & Calculations LVIDd: 3.2 cm IVSd: 1.2 cm LA dimension: 3.2 cm LVIDs: 1.6 cm LVPWd: 1.1 cm FS: 49.8 % LAV(MOD-bp): 37.1 ml LA A4 area: 13.8 cm2 LAV(MOD-bp) Indexed: 23.8 ml/m2 LAV(MOD-sp2): 37.9 ml LAV(MOD-sp4): 29.8 ml Time Measurements MV dec time: 0.22 sec Doppler Measurements & Calculations MV E max richard: 117.0 cm/sec Lat Peak E' Richard: 10.3 cm/sec Med Peak E' Richard: 6.3 cm/sec MV A max richard: 132.4 cm/sec E/E' lat: 11.3 E/E' med: 18.7 MV E/A: 0.88 MV V2 max: 149.3 cm/sec MV P1/2t max richard: 128.1 cm/sec Ao V2 max: 183.5 cm/sec MV max P.0 mmHg MV P1/2t: 76.3 msec Ao max P.5 mmHg MV V2 mean: 96.5 cm/sec MV dec slope: 491.7 cm/sec2 MV mean P.2 mmHg MV V2 VTI: 24.1 cm MVA(P1/2t): 2.9 cm2 LV V1 max: 177.5 cm/sec PA V2 max: 119.4 cm/sec LV V1 max P.6 mmHg ECHO/Echo Complete W/ Contrast Interpretation Summary Normal LV size. Left ventricular systolic function is normal. The estimated ejection fraction is 65 %. 1.1 x 0.9 cm mobile mass attached to the region of the moderator band in the ri ght ventricle. Cannot completely exclude vegetation. Patent foramen ovale. Ordering Physician: Duke Chaves Referring Physician: No PCP noted Performed By: Henri Diego RCS
--- NOTE | 2021-03-06 06:18 | CON.PCM.CC_ITS ---
Assessment & Plan Assessment/Plan (1) Severe sepsis: (2) Gram-positive bacteremia: PLAN: RECOMMENDATIONS: 1. Obtain echocardiogram to evaluate for endocarditis. 2. Continue both vancomycin and Zosyn, pending further culture results. 3. Supplemental IV fluids to offset insensible losses. 4. Electrolyte repletion as ordered. 5. Infectious diseases consultation is pending. 6. Continue Buprenorphine as ordered. 7. Wean supplemental oxygen to maintain saturations at or above 90%. IMPRESSIONS: 1. Severe sepsis Concern for gram-positive bacteremia in the setting of IV drug use, likely secondary to endocarditis. Echocardiogram is currently pending. The patient has been adequately volume resuscitated and at the present time is hemodynamically stable. Plan to continue current supportive measures with broad-spectrum antimicrobials, pending culture data. Infectious diseases consultation is pending. 2. Anemia/thrombocytopenia Likely secondary to #1. Plan to continue current supportive measures. Given any lack of overt signs of blood loss, there is no indication for transfusion of blood products. Continue to monitor on a daily basis. 3. Hypokalemia Electrolyte repletion as ordered. Recheck levels in the morning. 4. 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 Continue Buprenorphine as ordered. This note was generated with [employer] dictation software. It may contain incorrect words, spelling, and punctuation that were not noted in checking the note before signing. HPI Consult Data Date of Consult: 03/06/21 HPI Narrative Reason for Consultation: Severe sepsis HPI Narrative: The patient is a 25-year-old female, with a history as outlined below, who presented to the emergency department on March 05 with complaints of shortness of breath, generalized malaise, weakness, cough and lower extremity edema. The patient does have a history of heroin and methamphetamine dependency along with chronic tobacco dependency as well. She last used heroin yesterday. She stated that she last used methamphetamine 2 to 3 days ago. She does typically smoke 1 pack of cigarettes per day. She does report a history of bacteremia 1 year ago which led to inpatient hospitalization and the subsequent need for tricuspid valve repair/replacement. On presentation to the emergency department, the patient was noted to be febrile, tachycardic and tachypneic. Hemodynamics were quite tenuous. Initial laboratory evaluation revealed an elevated white blood cell count to 12,000. Platelet count was low at 39,000. D-dimer was elevated to 14.36. Chemistry profile was notable for a sodium of 129, potassium of 3.1, chloride of 95 and creatinine of 1.03. Lactate was elevated at 3.3. Total bili was increased to 3.5. CTA chest showed no evidence for pulmonary embolism but did demonstrate pa tchy groundglass opacities bilaterally. Lower extremity Doppler study was negative for DVT. The patient was started on supplemental IV fluids and broad- spectrum antimicrobials. She was subsequently admitted to the medical intensive care unit for further management. [facility] Medical History (Updated 03/06/21 @ 06:[address] Duke Chaves DO) Anxiety Depression History of cardiac pacemaker Osteoporosis Pacemaker Smoker Substance abuse Allergy/AdvReac Type Severity Reaction Status Date / Time No Known Allergies Allergy Verified 03/05/21 14:45 Social History Smoking Status: Current every day smoker tobacco type: cigarettes alcohol intake: never substance use type: does not use ROS Constitutional Constitutional: Reports chills, fatigue, fever(s), malaise and weakness Eyes Eyes: Denies blurry vision or change in vision ENT HEENT: Denies dizziness, dysphagia or nasal discharge Cardiovascular Cardiovascular: Reports dyspnea; Denies chest pain Respiratory/Chest Respiratory/Chest: Reports dyspnea; Denies chest tightness or cough Gastrointestinal Gastrointestinal: Denies abdominal pain, diarrhea, nausea or vomiting Genitourinary Genitourinary: Denies difficulty urinating Musculoskeletal Musculoskeletal: Reports arthralgias and myalgias Integumentary Integumentary: Denies wounds Neurologic Neurologic: Denies abnormal speech or confusion Psychiatric Psychiatric: Reports anxiety and depression Endocrine Endocrinology: Reports fatigue Hematologic/Lymphatic Hematologic/Lymphatic: Denies easy bleeding or easy bruising Physical Exam Const alert General Appearance: ill appearing HEENT normocephalic and head/scalp atraumatic Eyes PERRL and EOMs intact bilaterally Neck supple General: trachea midline Resp no use of accessory muscles Effort and Inspection: tachypneic Auscultation: Negative for rales, rhonchi or wheezes Cardio S1 normal heart sound and S2 normal heart sound Rate: tachycardic GI normal to inspection, nondistended, normoactive bowel sounds Extremity no clubbing, cyanosis or edema Neuro CN's II-XII intact bilaterally and no focal motor deficits Psych Mood & Affect: flat affect Lab / Micro Data Result Diagrams: 03/06/21 05:00 03/06/21 05:00 Labs: Laboratory Results - last 24 hr 03/05/21 03/05/21 03/05/21 16:55 17:15 17:15 WBC 12.0 H RBC 4.09 L Hgb 11.9 L Hct 34.7 L MCV 84.8 MCH 29.1 MCHC 34.3 RDW Std Deviation 41.8 RDW Coeff of Yaima 13.5 Plt Count 39 L* MPV TNP Neut % (Auto) Not Reportable Absolute Neuts (auto) 10.6 H Absolute Lymphs (auto) 0.72 L Total Counted 100 Neutrophils % (Manual) 83 H Band Neutrophils % 5 Lymphocytes % (Manual) 6 L Monocytes % (Manual) 4 Metamyelocytes % Myelocytes % 1 H Plasma Cell % (Manual) 1 Diff Path Review May foll Platelet Estimate MKD DEC RBC Morphology NORM C+C Polychromasia Hypochromasia Microcytosis Ovalocytes D-Dimer Quant (PE/DVT) 14.36 H* Sodium Potassium Chloride Carbon Dioxide Anion Gap BUN Creatinine Estim Creat Clear Calc Est GFR (MDRD) Af Amer Est GFR (MDRD) Non-Af BUN/Creatinine Ratio Glucose Lactic Acid Calcium Total Bilirubin Direct Bilirubin AST ALT Alkaline Phosphatase Troponin I Total Protein Albumin Globulin Serum , Qual NEGATIVE 03/05/21 03/05/21 03/06/21 17:15 21:20 01:30 WBC RBC Hgb Hct MCV MCH MCHC RDW Std Deviation RDW Coeff of Yaima Plt Count MPV Neut % (Auto) Absolute Neuts (auto) Absolute Lymphs (auto) Total Counted Neutrophils % (Manual) Band Neutrophils % Lymphocytes % (Manual) Monocytes % (Manual) Metamyelocytes % Myelocytes % Plasma Cell % (Manual) Diff Path Review Platelet Estimate RBC Morphology Polychromasia Hypochromasia Microcytosis Ovalocytes D-Dimer Quant (PE/DVT) Sodium 129 L Potassium 3.1 L Chloride 95 L Carbon Dioxide 23.0 Anion Gap 11 BUN 34 H Creatinine 1.03 H Estim Creat Clear Calc 65.77 Est GFR (MDRD) Af Amer 84 Est GFR (MDRD) Non-Af 69 BUN/Creatinine Ratio 33.0 H Glucose 125 H Lactic Acid 3.3 H* 2.1 H* Calcium 8.2 L Total Bilirubin 3.50 H Direct Bilirubin 2.27 H AST 69 H ALT 25 Alkaline Phosphatase 52 Troponin I 0.016 Total Protein 6.8 Albumin 2.4 L Globulin 4.4 H Serum , Qual 03/06/21 03/06/21 05:00 05:00 WBC 11.4 H RBC 3.46 L Hgb 10.0 L Hct 30.0 L MCV 86.7 MCH 28.9 MCHC 33.3 RDW Std Deviation 44.5 H RDW Coeff of Yaima 14.0 Plt Count 28 L* MPV Neut % (Auto) Not Reportable Absolute Neuts (auto) 9.3 H Absolute Lymphs (auto) 1.02 Total Counted 100 Neutrophils % (Manual) 74 H Band Neutrophils % 8 H Lymphocytes % (Manual) 9 L Monocytes % (Manual) 7 Metamyelocytes % 1 Myelocytes % 1 H Plasma Cell % (Manual) Diff Path Review May foll Platelet Estimate MKD DEC RBC Morphology Polychromasia RARE Hypochromasia 1+ Microcytosis 1+ Ovalocytes 1+ D-Dimer Quant (PE/DVT) Sodium 137 Potassium 3.3 L Chloride 107 Carbon Dioxide 20.0 L Anion Gap 10 BUN 21 H Creatinine 0.82 Estim Creat Clear Calc 75.33 Est GFR (MDRD) Af Amer 109 Est GFR (MDRD) Non-Af 90 BUN/Creatinine Ratio 25.7 H Glucose 110 H Lactic Acid Calcium 7.3 L Total Bilirubin Direct Bilirubin AST ALT Alkaline Phosphatase Troponin I Total Protein Albumin Globulin Serum , Qual Micro: Microbiology 03/05/21 19:45 Blood Culture - Preliminary Blood Culture (Wb) - Left Hand 03/05/21 15:20 SARS-CoV-2 Antigen (Rapid) - Final Interface Orders Radiology Impression Venous Doppler Study 03/05/21 15:07 Interpretation Summary No evidence for acute deep venous thrombosis bilateral lower extremities with patent and compressible bilateral great saphenous veins. Abbreviated COVID-19 protocol utilized Ordering Physician: Sue Lerner Performed By: Nicol Chow RVT Chest X-Ray 03/05/21 16:25 IMPRESSION: Suspect bilateral pneumonia and CT may be useful. Electronically Signed: Chano Gibbons MD at 16:56 EDT Tel , Service support , Chest CTA 03/05/21 18:26 IMPRESSION: CTA chest examination, without a demonstrated pulmonary embolism or arterial dissection. Bilateral nodular infiltrates. Electronically Signed: Kunal Hinds MD at 19:56 EDT , Service support , Charges/Coding Visit Charges Inpatient E&M: 44586 Init Hosp L3
--- NOTE | 2021-03-06 07:44 | PCM.PN.HOSP ---
Subjective Subjective Patient is a 25-year-old lady with history of opioid dependence who presented to the emergency department with progressive generalized weakness cough and shortness of breath over 5-day duration. CT of the chest demonstrated bilateral nodular infiltrate. Patient was also found to have elevated lactic acid level of 2.1 and assessment of severe sepsis secondary to pneumonia made admitted to the intensive care unit for further management Objective Data Objective Data Vital Signs: Vital Signs Temp Pulse Resp BP Pulse Ox 97.7 F L 125 H 28 H 113/72 95 03/06/21 04:00 03/06/21 07:38 03/06/21 07:00 03/06/21 07:00 03/06/21 07:15 Oxygen Flow Rate (L/min) 3 Oxygen Delivery Method Nasal Cannula Weight: 59.8 kg Body Mass Index (BMI) 24.5 Intake & Output: Intake and Output for Last 24 Hours 03/04/21 03/05/21 03/06/21 23:59 23:59 23:59 Intake Total 1989 3195 / 3195 Output Total 0 / 0 Balance 1989 3195 / 3195 Lab / Micro Data Result Diagrams: 03/06/21 05:00 03/06/21 05:00 Labs: Microbiology Past 72 Hours 03/05/21 19:45 Blood Culture (Wb) - Left Hand Blood Culture - Preliminary 03/05/21 15:20 Interface Orders SARS-CoV-2 Antigen (Rapid) - Final Laboratory Results 03/05/21 16:55: Serum , Qual NEGATIVE 03/05/21 17:15: WBC 12.0 H, RBC 4.09 L, Hgb 11.9 L, Hct 34.7 L, MCV 84.8, MCH 29.1, MCHC 34.3, RDW Std Deviation 41.8, RDW Coeff of Yaima 13.5, Plt Count 39 L*, MPV TNP, Neut % (Auto) Not Reportable, Absolute Neuts (auto) 10.6 H, Absolute Lymphs (auto) 0.72 L, Total Counted 100, Neutrophils % (Manual) 83 H, Band Neutrophils % 5, Lymphocytes % (Manual) 6 L, Monocytes % (Manual) 4, Myelocytes % 1 H, Plasma Cell % (Manual) 1, Diff Path Review February, Platelet Estimate MKD DEC, RBC Morphology NORM C+C 03/05/21 17:15: D-Dimer Quant (PE/DVT) 14.36 H* 03/05/21 17:15: Sodium 129 L, Potassium 3.1 L, Chloride 95 L, Carbon Dioxide 23.0, Anion Gap 11, BUN 34 H, Creatinine 1.03 H, Estim Creat Clear Calc 65.77, Est GFR (MDRD) Af Amer 84, Est GFR (MDRD) Non-Af 69, BUN/Creatinine Ratio 33.0 H, Glucose 125 H, Calcium 8.2 L, Total Bilirubin 3.50 H, Direct Bilirubin 2.27 H, AST 69 H, ALT 25, Alkaline Phosphatase 52, Troponin I 0.016, Total Protein 6.8, Albumin 2.4 L, Globulin 4.4 H 03/05/21 21:20: Lactic Acid 3.3 H* 03/06/21 01:30: Lactic Acid 2.1 H* 03/06/21 05:00: WBC 11.4 H, RBC 3.46 L, Hgb 10.0 L, Hct 30.0 L, MCV 86.7, MCH 28.9, MCHC 33.3, RDW Std Deviation 44.5 H, RDW Coeff of Yaima 14.0, Plt Count 28 L*, Neut % (Auto) Not Reportable, Absolute Neuts (auto) 9.3 H, Absolute Lymphs (auto) 1.02, Total Counted 100, Neutrophils % (Manual) 74 H, Band Neutrophils % 8 H, Lymphocytes % (Manual) 9 L, Monocytes % (Manual) 7, Metamyelocytes % 1, Myelocytes % 1 H, Diff Path Review May foll, Platelet Estimate MKD DEC, Polychromasia RARE, Hypochromasia 1+, Microcytosis 1+, Ovalocytes 1+ 03/06/21 05:00: Sodium 137, Potassium 3.3 L, Chloride 107, Carbon Dioxide 20.0 L, Anion Gap 10, BUN 21 H, Creatinine 0.82, Estim Creat Clear Calc 75.33, Est GFR (MDRD) Af Amer 109, Est GFR (MDRD) Non-Af 90, BUN/Creatinine Ratio 25.7 H, Glucose 110 H, Calcium 7.3 L Micro: Microbiology 03/05/21 19:45 Blood Culture (Wb) - Left Hand Blood Culture - Preliminary 03/05/21 15:20 Interface Orders SARS-CoV-2 Antigen (Rapid) - Final Radiography Diagnostic Testing: Radiology Impression Venous Doppler Study 03/05/21 15:07 Interpretation Summary No evidence for acute deep venous thrombosis bilateral lower extremities with patent and compressible bilateral great saphenous veins. Abbreviated COVID-19 protocol utilized Ordering Physician: Sue Lerner Performed By: Nicol Chow Dajuan Chest X-Ray 03/05/21 16:25 IMPRESSION: Suspect bilateral pneumonia and CT may be useful. Electronically Signed: Chano Gibbons MD at 16:56 EDT Tel , Service support , Chest CTA 03/05/21 18:26 IMPRESSION: CTA chest examination, without a demonstrated pulmonary embolism or arterial dissection. Bilateral nodular infiltrates. Electronically Signed: Kunal Hinds MD at 19:56 EDT , Service support , Physical Exam Narrative GENERAL: ill-looking HEENT: Atraumatic; EYES; Anicteric, Normal Conjunctiva NECK; supple, normal thyroid, RESPIRATORY: Diminished to auscultation CARDIOVASCULAR: Regular S1 S2, tachycardic GI: soft, normoactive bowel sounds, : No Renal angle tenderness; EXTREMITIES: No edema, no clubbing, MUSCULOSKELETAL: no muscle waisting NEURO: Awake; no lateralizing signs. SKIN: No Rash PSYCH; Flat affect Assessment & Plan Assessment/Plan (1) Pneumonia: PLAN: Patient is a 25-year-old lady with history of opioid dependence who presented to the emergency department with progressive generalized weakness cough and shortness of breath over 5-day duration. CT of the chest demonstrated bilateral nodular infiltrate. Patient was also found to have elevated lactic acid level of 2.1 and assessment of severe sepsis secondary to pneumonia made admitted to the intensive care unit for further management 1. Severe sepsis -CT of the chest demonstrated bilateral nodular infiltrate. There is high suspicion for possible endocarditis given the bilateral nature of patient's infiltrate. Blood cultures were sent, 2D echo ordered to rule out endocarditis. Patient had markedly elevated D-dimer and thrombocytopenia her rapid SARS-CoV-2 assay however came back negative. Requested for PCR testing. Patient was started on broad-spectrum antibiotic therapy after cultures have been sent. 2. Abnormal LFTs ?With significant hyperbilirubinemia and mildly elevated transaminases ordered acute hepatitis panel 3. Acute opioid dependence -patient apparently snorts fentanyl. Was started on Subutex for opioid withdrawal 4. Severe thrombocytopenia -suspected to be secondary to sepsis monitoring counts 5. Hypokalemia -Corrected per protocol 6. Polysubstance abuse ?Counseled on cessation Visit Charges Inpatient E&M: 57731 [facility] L3
--- NOTE | 2021-03-06 08:51 | NURSING ---
03/06/2021 0810 Bea RT notified of need for PCR covid test.
--- NOTE | 2021-03-06 09:18 | CASEMGMT ---
According to the [facility] website, the following tertiary facilities are in network: [facility], [place], [facility], [facility], [facility] and
[2021-03-06] MEDS: hydrOXYzine PAM 25 MG Capsule 50 MG PO (09:19)
--- NOTE | 2021-03-06 09:34 | PCM.RX.CS ---
Consult Pharmacy has been consulted to manage selected antiobiotic: Vancomycin Suspected Infection: Bacteremia Labs: Sodium 137 mmol/L (136-145) 03/06/21 05:00 Potassium 3.3 mmol/L (3.5-5.1) L 03/06/21 05:00 Chloride 107 mmol/L (98-107) 03/06/21 05:00 Carbon Dioxide 20.0 mmol/L (21.0-32.0) L 03/06/21 05:00 Anion Gap 10 (5-15) 03/06/21 05:00 BUN 21 mg/dL (7-18) H 03/06/21 05:00 Creatinine 0.82 mg/dL (0.55-1.02) 03/06/21 05:00 Est GFR (MDRD) Af Amer 109 mL/min (>60) 03/06/21 05:00 Est GFR (MDRD) Non-Af 90 mL/min (>60) 03/06/21 05:00 BUN/Creatinine Ratio 25.7 RATIO (10-20) H 03/06/21 05:00 Glucose 110 mg/dL (74-106) H 03/06/21 05:00 Microbiology: Microbiology 03/05/21 19:45 Blood Culture (Wb) - Left Hand Bacteria Detection (PCR) - Final Staphylococcus aureus 03/05/21 19:45 Blood Culture (Wb) - Left Hand Blood Culture - Preliminary 03/05/21 16:45 Blood Culture (Wb) - Left Forearm Blood Culture - Preliminary 03/05/21 15:20 Interface Orders SARS-CoV-2 Antigen (Rapid) - Final Goal Trough: 15-20 mcg/mL Pharmacy Plan for Drug Dosing: NEW START IV VANCOMYCIN Consulting Physician: PHYLICIA Indication: BACTEREMIA Goal Trough: 15-20 SrCr: 0.82 MG/DL CrCl: 75.3 ML/MIN Comments: PT GOT AN ER DOSE OF 750MG LAST NIGHT @2106. WILL START NEW DOSING REGIMEN NOW. Vancomycin Dose: 1000MG Q12 (USING ROUNDED WEIGHT OF 60KG AND CRCL OF 75.3). TROUGH PRIOR TO THE 4TH TOTAL DOSE PER POLICY. Pending Level: 03/07/21 @ 0930 Pharmacy Service will continue to monitor and adjust dosing as required.
--- NOTE | 2021-03-06 12:35 | CASEMGMT ---
YOGESH HU Assessment: Face to Face with pt for initial transition planning/care coordination assessment. RN MAYTE introduced self and role at [facility], pt voices understanding and consents to assessment. Pt is drowsy, O x4 and kept eyes closed for the assessment. Care providers, pharmacy, and demographics verified/updated. Admitting Dx: bilat pna, narcotic w/d PCP: Pt denies having PCP. RN MAYTE made aware of pamphlet that could be given of local PCP's. Pt states she does not want it. Specialists: Pt denies having any specialists. Preferred Pharmacy: [facility] pharmacy but states I use any pharmacy. Insurance: [facility] Prescription Benefit: yes LW/HPOA: Pt denies having LW/DPOA. LNOK: Clifford Slava, grandfather; Amparo Slava, grandmother Living Arrangements: Pt states she lives in a ground level apartment with friends. Pt would not elaborate any further. Pt states she is I in ADL's. Transportation: When patient asked if she drove she shrugged her shoulders. Asked patient if her friends would be available if needed to take to any medical appointments, pt did not answer the question. DME: Pt did not answer the question. CM to follow. Advised pt to ask CM if any further question/concerns/needs arise, voices understanding. Pt Goal: Pt states she does not know her goal. When asked if she planned on returning home, pt raised her voice and stated I dont know! Plan: TBD
--- NOTE | 2021-03-06 13:21 | CASEMGMT ---
Social Work SW met with pt in room and introduced self and role. Pt laying in bed with eyes closed and head turned away. Pt is awake but unwilling to answer SW questions. SW inquired about pt desire for detox program. Pt states I am on the meds now, that's all I need. SW attempted to explain that pt would need program after hospitalization to assist with recovery. Pt denies this stating she has a doctor. When asked to expand on this pt is unwilling to answer SW. Pt denies desire to see addiction SW from 180. SW will meet with pt again as time allows in hopes that pt will be more alert and willing to speak with SW to discuss substance use recovery. SCOTTIE Garcia
[2021-03-06 13:42] LABS: Pathologist Review Reviewed
[2021-03-06 13:50] LABS: Pathologist Review Reviewed
--- NOTE | 2021-03-06 14:24 | DS.PCM_ITS ---
Providers Date of Admission: 03/05/21 Primary Care Physician: Giselle Primary Care Phys Consultations 03/05/21 22:26 Consult: [employer] Flight Engineer / Pulmonary Medicine Routine Consulting Provider: Pulmonary Medicine alvin Mabry Reason for Consult: severe sepsis EMERGENT Consult: No Notified: Yes Date Notified:: 03/05/21 Time Notified: 22:26 Method of Notification: Text 03/06/21 08:49 Consult: Infectious Disease Routine Consulting Provider: Cornelio White Reason for Consult: POTENTIAL ENDOCARDITIS EMERGENT Consult: No Notified: Yes Date Notified:: 03/06/21 Time Notified: 08:51 Method of Notification: Text Reason For Visit: BILATERAL PNEUMONIA, NARCOTIC WITHDRAWAL Diagnosis Discharge Diagnosis (1) Severe sepsis: Status: Acute Code(s): A41.9 - Sepsis, unspecified organism; R65.20 - Severe sepsis without septic shock (2) Gram-positive bacteremia: Status: Acute Code(s): R78.81 - Bacteremia (3) Opioid withdrawal: Status: Acute Code(s): F11.23 - Opioid dependence with withdrawal (4) Pneumonia: Status: Acute Code(s): J18.9 - Pneumonia, unspecified organism (5) Septic embolism: Status: Acute Code(s): I76 - Septic arterial embolism (6) Endocarditis: Status: Acute Code(s): I38 - Endocarditis, valve unspecified (7) Staphylococcus aureus bacteremia: Status: Acute Code(s): R78.81 - Bacteremia; B95.61 - Methicillin susceptible Staphylococcus aureus infection as the cause of diseases classified elsewhere Hospital Course Procedures 2-D Echocardiogram Summary of Care Provided Minutes Spent on Discharge: 55 Hospital Course: Patient is a 25-year-old lady with history of opioid dependence who presented to the emergency department with progressive generalized weakness cough and shortness of breath over 5-day duration. CT of the chest demonstrated bilateral nodular infiltrate. Patient was also found to have elevated lactic acid level of 2.1 and assessment of severe sepsis secondary to pneumonia made admitted to the intensive care unit for further management 1. Severe sepsis -CT of the chest demonstrated bilateral nodular infiltrate. There is high susp icion for possible endocarditis given the bilateral nature of patient's infiltrate. Blood cultures were sent, 2D echo ordered to rule out endocarditis. Patient had markedly elevated D-dimer and thrombocytopenia her rapid SARS-CoV-2 assay however came back negative. Requested for PCR testing. Remigio stewart was started on broad-spectrum antibiotic therapy after cultures have been sent. ?2D echo obtained demonstrated a mobile mass measuring 1.1 x 0.9 cm in the right ventricle suspicious for endocarditis. Patient blood cultures also came back positive for Staph aureus. Patient has been started on broad-spectrum antibiotic therapy with Zosyn and vancomycin. Given patient's clinical condition Case was discussed with the roper operator as well as infectious disease the decision was made to transfer patient to a tertiary care center call was placed to [facility] patient was accepted for transfer 2. Abnormal LFTs ?With significant hyperbilirubinemia and mildly elevated transaminases ordered a cute hepatitis panel 3. Acute opioid dependence -patient apparently snorts fentanyl. Was started on Subutex for opioid withdrawal 4. Severe thrombocytopenia -suspected to be secondary to sepsis monitoring counts 5. Hypokalemia -Corrected per protocol 6. Polysubstance abuse ?Counseled on cessation Physical Exam Narrative GENERAL: ill-looking HEENT: Atraumatic; EYES; Anicteric, Normal Conjunctiva NECK; supple, normal thyroid, RESPIRATORY: Diminished to auscultation CARDIOVASCULAR: Regular S1 S2, tachycardic GI: soft, normoactive bowel sounds, NEURO: Awake; no lateralizing signs. SKIN: No Rash PSYCH; Flat affect ABG / Lab / Microbiology Data Result Diagrams: 03/06/21 05:00 03/06/21 05:00 Laboratory: Laboratory Results - last 24 hr 03/05/21 03/05/21 03/05/21 16:55 17:15 17:15 WBC 12.0 H RBC 4.09 L Hgb 11.9 L Hct 34.7 L MCV 84.8 MCH 29.1 MCHC 34.3 RDW Std Deviation 41.8 RDW Coeff of Yaima 13.5 Plt Count 39 L* MPV TNP Neut % (Auto) Not Reportable Absolute Neuts (auto) 10.6 H Absolute Lymphs (auto) 0.72 L Total Counted 100 Neutrophils % (Manual) 83 H Band Neutrophils % 5 Lymphocytes % (Manual) 6 L Monocytes % (Manual) 4 Metamyelocytes % Myelocytes % 1 H Plasma Cell % (Manual) 1 Diff Path Review Reviewed Platelet Estimate MKD DEC RBC Morphology NORM C+C Polychromasia Hypochromasia Microcytosis Ovalocytes D-Dimer Quant (PE/DVT) 14.36 H* Sodium Potassium Chloride Carbon Dioxide Anion Gap BUN Creatinine Estim Creat Clear Calc Est GFR (MDRD) Af Amer Est GFR (MDRD) Non-Af BUN/Creatinine Ratio Glucose Lactic Acid Calcium Total Bilirubin Direct Bilirubin AST ALT Alkaline Phosphatase Troponin I Total Protein Albumin Globulin Serum , Qual NEGATIVE COVID-19 (ALYCE) 03/05/21 03/05/21 03/06/21 17:15 21:20 01:30 WBC RBC Hgb Hct MCV MCH MCHC RDW Std Deviation RDW Coeff of Yaima Plt Count MPV Neut % (Auto) Absolute Neuts (auto) Absolute Lymphs (auto) Total Counted Neutrophils % (Manual) Band Neutrophils % Lymphocytes % (Manual) Monocytes % (Manual) Metamyelocytes % Myelocytes % Plasma Cell % (Manual) Diff Path Review Platelet Estimate RBC Morphology Polychromasia Hypochromasia Microcytosis Ovalocytes D-Dimer Quant (PE/DVT) Sodium 129 L Potassium 3.1 L Chloride 95 L Carbon Dioxide 23.0 Anion Gap 11 BUN 34 H Creatinine 1.03 H Estim Creat Clear Calc 65.77 Est GFR (MDRD) Af Amer 84 Est GFR (MDRD) Non-Af 69 BUN/Creatinine Ratio 33.0 H Glucose 125 H Lactic Acid 3.3 H* 2.1 H* Calcium 8.2 L Total Bilirubin 3.50 H Direct Bilirubin 2.27 H AST 69 H ALT 25 Alkaline Phosphatase 52 Troponin I 0.016 Total Protein 6.8 Albumin 2.4 L Globulin 4.4 H Serum , Qual COVID-19 (ALYCE) 03/06/21 03/06/21 03/06/21 05:00 05:00 08:56 WBC 11.4 H RBC 3.46 L Hgb 10.0 L Hct 30.0 L MCV 86.7 MCH 28.9 MCHC 33.3 RDW Std Deviation 44.5 H RDW Coeff of Yaima 14.0 Plt Count 28 L* MPV Neut % (Auto) Not Reportable Absolute Neuts (auto) 9.3 H Absolute Lymphs (auto) 1.02 Total Counted 100 Neutrophils % (Manual) 74 H Band Neutrophils % 8 H Lymphocytes % (Manual) 9 L Monocytes % (Manual) 7 Metamyelocytes % 1 Myelocytes % 1 H Plasma Cell % (Manual) Diff Path Review Reviewed Platelet Estimate MKD DEC RBC Morphology Polychromasia RARE Hypochromasia 1+ Microcytosis 1+ Ovalocytes 1+ D-Dimer Quant (PE/DVT) Sodium 137 Potassium 3.3 L Chloride 107 Carbon Dioxide 20.0 L Anion Gap 10 BUN 21 H Creatinine 0.82 Estim Creat Clear Calc 75.33 Est GFR (MDRD) Af Amer 109 Est GFR (MDRD) Non-Af 90 BUN/Creatinine Ratio 25.7 H Glucose 110 H Lactic Acid Calcium 7.3 L Total Bilirubin Direct Bilirubin AST ALT Alkaline Phosphatase Troponin I Total Protein Albumin Globulin Serum , Qual COVID-19 (ALYCE) Not Detected Microbiology: Microbiology 03/05/21 16:45 Blood Culture - Preliminary Blood Culture (Wb) - Left Forearm 03/05/21 19:45 Bacteria Detection (PCR) - Final Blood Culture (Wb) - Left Hand Staphylococcus aureus Blood Culture - Preliminary 03/05/21 15:20 SARS-CoV-2 Antigen (Rapid) - Final Interface Orders Microbiology 03/05/21 16:45 Blood Culture (Wb) - Left Forearm Blood Culture - Preliminary 03/05/21 19:45 Blood Culture (Wb) - Left Hand Bacteria Detection (PCR) - Final Staphylococcus aureus 03/05/21 19:45 Blood Culture (Wb) - Left Hand Blood Culture - Preliminary 03/05/21 15:20 Interface Orders SARS-CoV-2 Antigen (Rapid) - Final Radiography Diagnostic Testing: Radiology Impression Venous Doppler Study 03/05/21 15:07 Interpretation Summary No evidence for acute deep venous thrombosis bilateral lower extremities with patent and compressible bilateral great saphenous veins. Abbreviated COVID-19 protocol utilized Ordering Physician: Sue Lerner Performed By: Nicol Chow RVT Chest X-Ray 03/05/21 16:25 IMPRESSION: Suspect bilateral pneumonia and CT may be useful. Electronically Signed: Chano Gibbons MD at 16:56 EDT Tel , Service support , Chest CTA 03/05/21 18:26 IMPRESSION: CTA chest examination, without a demonstrated pulmonary embolism or arterial dissection. Bilateral nodular infiltrates. Electronically Signed: Kunal iHnds MD at 19:56 EDT , Service support , Echocardiogram 03/06/21 05:57 Interpretation Summary Normal LV size. Left ventricular systolic function is normal. The estimated ejection fraction is 65 %. 1.1 x 0.9 cm mobile mass attached to the region of the moderator band in the right ventricle. Cannot completely exclude vegetation. Patent foramen ovale. Ordering Physician: Duke Chaves Referring Physician: No PCP noted Performed By: Henri Diego RCS D/C Instructions Discharge Diet: No restrictions Meaningful Use Info Meaningful Use Diagnoses (Choose all that apply): None applicable Discharge Plan Admission Admit Date/Time: 03/05/21 22:25 Primary Reason for Your Visit: Endocarditis with septic emboli Attending Provider: Calderon Tan Primary Care Provider: Care Physician,No Primary Consulting Providers: Dm Marks ; Duke Chaves ; Marti Charles NP ; Cornelio White Discharge Orders/Prescriptions Referrals / Follow Up: Care Physician,No Primary [Primary Care Provider] - Disposition Disposition (needs filled in before D/C Order can be placed): Acute Care [facility] Visit Charges Inpatient E&M: 34705 Disch Hosp
--- NOTE | 2021-03-06 14:28 | CON.PCM.ID_ITS ---
Assessment & Plan Assessment/Plan (1) Staphylococcus aureus bacteremia: PLAN: severe sepsis due to mssa bacteremia per pcr from IVDU - has healed sternal incision, not clear what surgery was done; admitted to a year ago with what sounds like endocarditis but she is a difficult historian. Reports pacemaker in place but no device on exam or imaging. - TTE with concern for R sided endocarditis. Recommend TIERNEY and likely cardiac surgery eval. - anemia, low platelets, elevated bili. No schistocytes seen on smear. No bleeding, no PE seen on CTA. Diff dx includes hemolytic anemia/dic. - L ankle is extremely tender, concerning for septic arthritis, recommend ortho eval. - with spine tenderness, BLE weakness, and incontinence, will need urgent MRI and consider neurosurg eval. - repeat bcx now, cont vanc/zosyn. Hep panel pending here, refuses hiv testing. Recommend transfer to tertiary care center. D/w pulm and hospitalist. Will follow, thank you. (2) Endocarditis: (3) Severe sepsis: HPI Consult Data Date of Consult: 03/06/21 HPI Narrative HPI Narrative: YVONNE HENRY, is a 25 F with h/o IVDU and ? prior heart surgery a year ago for what sounds like infective endocarditis at , presented with several days of fever, chills, weakness, diffuse body pain, dyspnea, and incontinence. Denies using needles, reports neg hiv and hep testing in the p ast. Denies sharing needles. Per pulm consult, last used heroin a day prior and meth 2-3 days prior to admit. Started on vanc/zosyn here. Bcx with mssa per pcr. TTE with concern for endocarditis. C/o severe pain in L ankle, no focal back pain. Full ROS performed and neg except as noted above. Has not gotten covid vaccine. [facility] Medical History (Updated 03/06/21 @ 14:[address] Calderon Tan MD) Anxiety Depression History of cardiac pacemaker Osteoporosis Pacemaker Smoker Substance abuse Allergy/AdvReac Type Severity Reaction Status Date / Time No Known Allergies Allergy Verified 03/05/21 14:45 Social History Smoking Status: Current every day smoker tobacco type: cigarettes alcohol intake: never substance use type: does not use Physical Exam Const alert Constitutional Narrative: in pain General Appearance: lethargic HEENT normocephalic and head/scalp atraumatic Eyes PERRL and EOMs intact bilaterally Neck supple and No nodes Resp normal air movement and clear to auscultation bilaterally Cardio regular rate and regular rhythm Heart Sounds: murmur GI normal to inspection, nondistended, normoactive bowel sounds Extremity no clubbing, cyanosis or edema Extremity Narrative: L ankle is extremely tender to any movement, warm, some swelling. No focal spine tenderness, but slightly worse over mid-T-spine. Skin Skin Narrative: Splinter hemorrhage on R 2nd finger, L 3rd finger. Toes are painted. Neuro CN's II-XII intact bilaterally Lab / Micro Data Result Diagrams: 03/06/21 05:00 03/06/21 05:00 Labs: Laboratory Results - last 24 hr 03/05/21 03/05/21 03/05/21 16:55 17:15 17:15 WBC 12.0 H RBC 4.09 L Hgb 11.9 L Hct 34.7 L MCV 84.8 MCH 29.1 MCHC 34.3 RDW Std Deviation 41.8 RDW Coeff of Yaima 13.5 Plt Count 39 L* MPV TNP Neut % (Auto) Not Reportable Absolute Neuts (auto) 10.6 H Absolute Lymphs (auto) 0.72 L Total Counted 100 Neutrophils % (Manual) 83 H Band Neutrophils % 5 Lymphocytes % (Manual) 6 L Monocytes % (Manual) 4 Metamyelocytes % Myelocytes % 1 H Plasma Cell % (Manual) 1 Diff Path Review Reviewed Platelet Estimate MKD DEC RBC Morphology NORM C+C Polychromasia Hypochromasia Microcytosis Ovalocytes D-Dimer Quant (PE/DVT) 14.36 H* Sodium Potassium Chloride Carbon Dioxide Anion Gap BUN Creatinine Estim Creat Clear Calc Est GFR (MDRD) Af Amer Est GFR (MDRD) Non-Af BUN/Creatinine Ratio Glucose Lactic Acid Calcium Total Bilirubin Direct Bilirubin AST ALT Alkaline Phosphatase Troponin I Total Protein Albumin Globulin Serum , Qual NEGATIVE COVID-19 (ALYCE) 03/05/21 03/05/21 03/06/21 17:15 21:20 01:30 WBC RBC Hgb Hct MCV MCH MCHC RDW Std Deviation RDW Coeff of Yaima Plt Count MPV Neut % (Auto) Absolute Neuts (auto) Absolute Lymphs (auto) Total Counted Neutrophils % (Manual) Band Neutrophils % Lymphocytes % (Manual) Monocytes % (Manual) Metamyelocytes % Myelocytes % Plasma Cell % (Manual) Diff Path Review Platelet Estimate RBC Morphology Polychromasia Hypochromasia Microcytosis Ovalocytes D-Dimer Quant (PE/DVT) Sodium 129 L Potassium 3.1 L Chloride 95 L Carbon Dioxide 23.0 Anion Gap 11 BUN 34 H Creatinine 1.03 H Estim Creat Clear Calc 65.77 Est GFR (MDRD) Af Amer 84 Est GFR (MDRD) Non-Af 69 BUN/Creatinine Ratio 33.0 H Glucose 125 H Lactic Acid 3.3 H* 2.1 H* Calcium 8.2 L Total Bilirubin 3.50 H Direct Bilirubin 2.27 H AST 69 H ALT 25 Alkaline Phosphatase 52 Troponin I 0.016 Total Protein 6.8 Albumin 2.4 L Globulin 4.4 H Serum , Qual COVID-19 (ALYCE) 03/06/21 03/06/21 03/06/21 05:00 05:00 08:56 WBC 11.4 H RBC 3.46 L Hgb 10.0 L Hct 30.0 L MCV 86.7 MCH 28.9 MCHC 33.3 RDW Std Deviation 44.5 H RDW Coeff of Yaima 14.0 Plt Count 28 L* MPV Neut % (Auto) Not Reportable Absolute Neuts (auto) 9.3 H Absolute Lymphs (auto) 1.02 Total Counted 100 Neutrophils % (Manual) 74 H Band Neutrophils % 8 H Lymphocytes % (Manual) 9 L Monocytes % (Manual) 7 Metamyelocytes % 1 Myelocytes % 1 H Plasma Cell % (Manual) Diff Path Review Reviewed Platelet Estimate MKD DEC RBC Morphology Polychromasia RARE Hypochromasia 1+ Microcytosis 1+ Ovalocytes 1+ D-Dimer Quant (PE/DVT) Sodium 137 Potassium 3.3 L Chloride 107 Carbon Dioxide 20.0 L Anion Gap 10 BUN 21 H Creatinine 0.82 Estim Creat Clear Calc 75.33 Est GFR (MDRD) Af Amer 109 Est GFR (MDRD) Non-Af 90 BUN/Creatinine Ratio 25.7 H Glucose 110 H Lactic Acid Calcium 7.3 L Total Bilirubin Direct Bilirubin AST ALT Alkaline Phosphatase Troponin I Total Protein Albumin Globulin Serum , Qual COVID-19 (ALYCE) Not Detected Micro: Microbiology 06/01/21 16:45 Blood Culture - Preliminary Blood Culture (Wb) - Left Forearm 03/05/21 19:45 Bacteria Detection (PCR) - Final Blood Culture (Wb) - Left Hand Staphylococcus aureus Blood Culture - Preliminary 03/05/21 15:20 SARS-CoV-2 Antigen (Rapid) - Final Interface Orders Radiology Impression Venous Doppler Study 03/05/21 15:07 Interpretation Summary No evidence for acute deep venous thrombosis bilateral lower extremities with patent and compressible bilateral great saphenous veins. Abbreviated COVID-19 protocol utilized Ordering Physician: Sue Lerner Performed By: Nicol Chow Dajuan Chest X-Ray 03/05/21 16:25 IMPRESSION: Suspect bilateral pneumonia and CT may be useful. Electronically Signed: Chano Gibbons MD at 16:56 EDT Tel , Service support , Chest CTA 03/05/21 18:26 IMPRESSION: CTA chest examination, without a demonstrated pulmonary embolism or arterial dissection. Bilateral nodular infiltrates. Electronically Signed: Kunal Hinds MD at 19:56 EDT , Service support , Echocardiogram 03/06/21 05:57 Interpretation Summary Normal LV size. Left ventricular systolic function is normal. The estimated ejection fraction is 65 %. 1.1 x 0.9 cm mobile mass attached to the region of the moderator band in the right ventricle. Cannot completely exclude vegetation. Patent foramen ovale. Ordering Physician: Duke Chaves Referring Physician: Giselle PCP noted Performed By: Henri Diego RCS
[2021-03-07 06:08] LABS: HEPATITIS B SURFACE AG Negative (Negative); Hepatitis A IgM Antibody Negative (Negative); Hepatitis B Core AB IgM Negative (Negative)
[2021-03-07 08:58] LABS: Hep C Antibodies >11.0 s/co ratio (0.0-0.9)
== END 2021-03-06 19:00 | disposition short-term general hospital (02) | DRG 720 ==
LOC: ED 16:59 → MS3 22:02 → ICU 03-06 02:31
PROVIDERS: Admitting Provider Internal Medicine; Emergency Provider Emergency Medicine; Visit Provider Internal Medicine
DX: A41.9 Sepsis, unspecified organism (principal); J18.9 Pneumonia, unspecified organism; R65.20 Severe sepsis without septic shock; R94.5 Abnormal results of liver function studies; D69.59 Other secondary thrombocytopenia; E87.6 Hypokalemia; Z95.0 Presence of cardiac pacemaker; F17.210 Nicotine dependence, cigarettes, uncomplicated; F11.23 Opioid dependence with withdrawal; F15.20 Other stimulant dependence, uncomplicated; E87.1 Hypo-osmolality and hyponatremia; E86.0 Dehydration; B95.61 Methicillin susceptible Staphylococcus aureus infection as the cause of diseases classified elsewhere
CPT/HCPCS: 36415; 71045; 71275; 80048; 80074; 80076; 83605; 84484; 84703; 85025; 85379; 87040; 87077; 87149; 87186; 87426; 87635; 93005; 93306; 93970; 99251; 99285; 99406; J7030; J7040; J7050; Q9957; Q9967; U0005; A4216; C8929; G0463; U0003

== ENCOUNTER 2021-06-04 14:41 | Inpatient (IN) | payer MEDICAID, SELFPAY ==
[2021-06-04 14:42] VITALS: BP 123/63; PULSE 117; RESP 16; TEMP 37.2; O2SAT 95; BMI 21.4
[2021-06-04 14:44] VITALS: BP 123/63; PULSE 117; RESP 16; TEMP 37.2; O2SAT 95
--- NOTE | 2021-06-04 15:26 | EDS_ITS ---
HPI History of Present Illness Chief Complaint: Fever Informant: patient Narrative Narrative: Patient is a 25-year-old female who presents to the emergency department for fever. She states that this started over the weekend. It has gotten up to 103 at home. She did take Tylenol prior to coming in. She states that she has had a history of endocarditis and was admitted to [facility] and discharged a few weeks ago. She was not on any antibiotics for home. She states that she did require dialysis during her hospital stay. Patient was seen at outside emergency department a few weeks ago and told her kidney function is worsening and they recommended hospitalization but she refused. She states that her urine has turned dark and is urinating less. She denies any burning or blood in the urine. She denies any low back pain. She denies any cough, na usea/vomiting or diarrhea. No rashes or neck stiffness. She has had a mild headache. She has not been vaccinated for Covid. She denies any respiratory symptoms. Patient does have a history of IV drug abuse but has denied this to me today. [facility] Medical History Anxiety Depression History of cardiac pacemaker Osteoporosis Pacemaker Smoker Substance abuse Home Medications cyclobenzaprine 10 mg PO BID 06/04/21 [History Last Taken 2 Days Ago ~06/02/21] famotidine 20 mg PO DAILY 06/04/21 [History Last Taken 2 Days Ago ~06/02/21] furosemide 40 mg PO DAILY 06/04/21 [History Last Taken 2 Days Ago ~06/02/21] potassium chloride [Klor-Con M20] 20 meq PO DAILY 06/04/21 [History Last Taken 2 Days Ago ~06/02/21] sertraline 100 mg PO DAILY 06/04/21 [History Last Taken 2 Days Ago ~06/02/21] trazodone 50 mg PO DAILY 06/04/21 [History Last Taken 2 Days Ago ~06/02/21] Allergy/AdvReac Type Severity Reaction Status Date / Time Iodinated Contrast Media [CT] Allergy Hives Verified 06/04/21 14:45 Social History Smoking Status: Current every day smoker tobacco type: cigarettes alcohol intake: never substance use type: does not use ROS ROS ED Constitutional Constitutional ED: Reports chills and fever(s) Eyes Eyes: Denies change in vision ENT ENT ED: Denies epistaxis or rhinorrhea Cardiovascular Cardiovascular: Denies chest pain or palpitations Respiratory/Chest Respiratory/Chest: Denies cough, dyspnea or dyspnea on exertion Gastrointestinal Gastrointestinal: Denies abdominal pain, diarrhea, nausea or vomiting Genitourinary Genitourinary ED: Denies dysuria, hematuria or urinary frequency Musculoskeletal Musculoskeletal: Denies back pain or neck pain Integumentary Denies rash Neurologic Neurologic: Reports headache(s); Denies dizziness or weakness EXAM Physical Exam Const Vital Signs: 06/04/21 14:42 06/04/21 14:44 06/04/21 14:55 Temperature 99 F 99 F Temperature Source Oral Oral Pulse Rate 117 H 117 H Respiratory Rate 16 16 Respiratory Effort Normal Non-Labored Blood Pressure 123/63 H 123/63 H Blood Pressure Mean 83 83 Pulse Ox 95 95 Oxygen Delivery Method Room Air Room Air 06/04/21 17:12 Temperature 98.5 F Temperature Source Oral Pulse Rate 88 Respiratory Rate 14 Respiratory Effort Blood Pressure 116/64 Blood Pressure Mean 81 Pulse Ox 98 Oxygen Delivery Method Room Air Positive well nourished and well developed General Appearance ED: well developed and NAD HEENT Reports normocephalic and head/scalp atraumatic Eyes PERRL and EOMs intact bilaterally Neck supple Chest Wall inspection of chest normal Resp normal respiratory effort and clear to auscultation bilaterally Auscultation: Negative for rales, rhonchi or wheezes Cardio regular rhythm and no murmurs Rate: tachycardic GI normal to inspection, nondistended, normoactive bowel sounds GI Narrative: Mild tenderness diffusely over her abdomen. Palpation: soft; Negative for guarding or rebound tenderness present Back/Spine no CVA tenderness Extremity normal to inspection General Extremety ED: Negative for tenderness Neuro CN's II-XII intact bilaterally and no sensory deficits noted Sensorium / Orientation: alert Motor Exam: strength 5/5 throughout Psych mental status grossly normal Skin no rashes or lesions noted MDM MDM MDM Narrative Medical decision making narrative: Patient presents to the emergency department for fever at home. She did take Tylenol prior to coming in. On arrival she is tachycardic with a heart rate of 117 but otherwise normal vital signs. She is in no acute distress. Given her history of sepsis and endocarditis will check basic lab work including lactic acid and blood cultures. Chest x-ray and urin alysis being obtained. Patient's lab work did not reveal a high white blood cell count. She is mildly anemic at 10.4. Her potassium is 2.9. She does have an ELOISA with a creatinine of 3.52 which is severely elevated from previous lab work-up. Will bring her to the hospital for further evaluation and management. Patient has not been able to give a urine sample at this point and is refusing catheterization. 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 She is not currently on any antibiotics. She otherwise has remained stable throughout ED stay. Will bring into the hospital at this time. I did discuss the case with the hospitalist who is not sure if her creatinine is at baseline or not as she was previously on dialysis. He is trying to find this out. If patient's creatinine is near her baseline that she can potentially be discharged home. We are currently waiting a urinalysis to see if there is any evidence of infection. She otherwise has remained stable here. Disposition based on previous lab work. Lab Data Labs: Laboratory Results - last 24 hr 06/04/21 06/04/21 06/04/21 15:40 15:40 15:40 WBC 6.0 RBC 3.69 L Hgb 10.4 L Hct 32.6 L MCV 88.3 MCH 28.2 MCHC 31.9 L RDW Std Deviation 54.9 H RDW Coeff of Yaima 16.9 H Plt Count 156 MPV 11.2 Immature Gran % (Auto) 1.300 H Neut % (Auto) 84.3 H Lymph % (Auto) 5.6 L [place] % (Auto) 8.1 Eos % (Auto) 0.5 Baso % (Auto) 0.2 Absolute Neuts (auto) 5.1 Absolute Lymphs (auto) 0.34 L Nucleated RBC % 0 Differential Comment SCANNED Sodium 136 Potassium 2.9 L Chloride 105 Carbon Dioxide 22.0 Anion Gap 9 BUN 30 H Creatinine 3.52 H Estim Creat Clear Calc 17.55 Est GFR (MDRD) Af Amer 20 L Est GFR (MDRD) Non-Af 17 L BUN/Creatinine Ratio 8.5 L Glucose 136 H Lactic Acid 1.4 Calcium 8.4 L Total Bilirubin 2.10 H AST 17 ALT 19 Alkaline Phosphatase 31 L Total Protein 7.4 Albumin 2.8 L Globulin 4.6 H Albumin/Globulin Ratio 0.6 L Radiography Diagnostic Testing: Radiology Impression Chest X-Ray 06/04/21 16:20 IMPRESSION: No acute cardiopulmonary disease. Electronically Signed: Jassi Dietrich DO at 16:46 EDT Tel [phone], Service support , Discharge Plan Triage Chief Complaint: Fever ED Provider: Phillip Renteria Dx/Rx/DC Orders Clinical Impression: ELOISA (acute kidney injury) Prescriptions: No Action cyclobenzaprine 10 mg tablet 10 mg PO BID RF: 0 furosemide 40 mg tablet 40 mg PO DAILY RF: 0 trazodone 50 mg tablet 50 mg PO DAILY RF: 0 sertraline 100 mg tablet 100 mg PO DAILY RF: 0 potassium chloride [Klor-Con M20] 20 mEq tablet,ER particles/crystals 20 meq PO DAILY RF: 0 famotidine 20 mg tablet 20 mg PO DAILY RF: 0 Primary Care Provider: Care Physician,No Primary Referrals: Care Physician,No Primary [Primary Care Provider] -
[2021-06-04 15:54] LABS: Absolute Lymphocyte Count 0.34 X10^3/uL (0.83-4.51); Absolute Neutrophil Count 5.1 X10^3/uL (2.0-7.7); Basophil# 0.01 X10^3/uL; Basophil% 0.2 % (0-1); Eosinophil# 0.03 X10^3/uL; Eosinophils% 0.5 % (0-5); Hematocrit 32.6 % (37-47); Hemoglobin 10.4 g/dL (12.0-15.0); Lymphocyte # 0.34 X10^3/ul (0.83-4.51); Lymphocyte % 5.6 % (19-41); Mean Corp Hgb Conc 31.9 g/dL (32-36); Mean Corpuscular Hgb 28.2 pg (27.0-32.0); Mean Corpuscular Volume 88.3 fL (81-99); Mean Platelet Vol. 11.2 fl (6.2-12.0); Monocyte# 0.49 X10^3/uL; Monocyte% 8.1 % (0-10); NRBC Flagged by Analyzer 0 % (0-5); Neutrophil # 5.07 X10^3/uL (2.7-7.7); Neutrophil % 84.3 % (47-70); POSITIVE DIFFERENTIAL YES; Platelet Count 156 K/mm3 (150-450); RBC Distribution Width CV 16.9 % (11.6-14.6); RBC Distribution Width SD 54.9 fl (35.1-43.9); Red Blood Count 3.69 M/mm3 (4.2-5.4)
--- NOTE | 2021-06-04 15:54 | CM.ED ---
PRIYANKA Note: Referral Source: Case Find Referral Reason: No Primary Care Physician SW met with patient. Explained that chart review notes that patient has no PCP and patient confirmed this was accurate. SW provided patient with list of [facility] Physician Directory and encouraged patient to establish with a PCP. No other issues or concerns voiced. SW remains available. Plan: PCP resources provided. Halina GALLOWAY
[2021-06-04 16:05] LABS: Differential Indicated SCAN CRITERIA MET
[2021-06-04 16:10] LABS: ALB/GLOB Ratio 0.6 RATIO (0.9-2.4); AST(SGOT) 17 U/L (15-37); Alanine Aminotransfer ALT/SGPT 19 U/L (13-56); Albumin, Serum 2.8 g/dL (3.2-5.0); Alkaline Phosphatase 31 U/L (45-117); Anion Gap 9 (5-15); BUN 30 mg/dL (7-18); BUN/Creat Ratio 8.5 RATIO (10-20); Calcium,Total 8.4 mg/dL (8.5-10.1); Chloride 105 mmol/L (98-107); Creatinine, Serum 3.52 mg/dL (0.55-1.02); EST Glomerular Filtration Rate 17 mL/min (>60); Est Glom Filt Rate - Afr Amer 20 mL/min (>60); Estimated Creatinine Clearance 17.55 ml/min; Globulin 4.6 g/dL (2.2-4.2); Glucose 136 mg/dL (74-106); Potassium 2.9 mmol/L (3.5-5.1); Protein, Total 7.4 g/dL (6.4-8.2); Sodium Level 136 mmol/L (136-145)
--- NOTE | 2021-06-04 16:20 | RAD_ITS ---
STUDY: X-RAY CHEST REASON FOR EXAM: Female, 25 years old. Fever for several days. Dark bloody urine. History of kidney and heart problems. TECHNIQUE: Single AP portable view of the chest. COMPARISON: 03/05/2021. FINDINGS: The lungs are clear and expanded. There is resolution of vague infiltrate seen on the prior chest film. There is no demonstrated pleural abnormality. Stable evidence of median sternotomy and cardiac valvuloplasty.. Normal mediastinum and shaw. Normal visualized pulmonary arteries. Normal visualized aortic arch and descending thoracic aorta. There are no osseous changes. There is no demonstrated abnormality of the visualized soft tissue structures of the upper abdomen. RAD/Chest 1 View (Portable) IMPRESSION: No acute cardiopulmonary disease. Electronically Signed: Jassi Dietrich DO at 16:46 EDT Tel [phone], Service support ,
[2021-06-04 16:23] LABS: Lactic Acid 1.4 mmol/L (0.4-1.9)
[2021-06-04 16:24] LABS: Differential Comment SCANNED
[2021-06-04] MEDS: 0.9% Normal Saline 1,000 ML 1000 ML IV (16:32)
--- NOTE | 2021-06-04 17:08 | ED.RN ---
pt can not be cath because it makes my vagina swell up like a balloon.
[2021-06-04 17:12] VITALS: BP 116/64; PULSE 88; RESP 14; TEMP 36.9; O2SAT 98
--- NOTE | 2021-06-04 18:18 | PCM.HP.STD ---
HPI - General HPI Narrative YVONNE HENRY, is a 25 F who presents with fever that began 06/03. Progressively gotten worse since then up to 104. Took acetaminophen then presented to ED. Afebrile here, but was found to have an elevated creatinine of 3.52. Hospitalist service contracted for abnormal lab for admission. Pt unable to urinate and provide sample. 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 Patient was subsequently transferred to critical access hospital where she completed 6 weeks of IV antibiotics. Patient states that she is to follow-up at [facility] infectious disease in the next week or 2 for further recommendations for her tricuspid valve endocarditis history. Patient states that she is no longer using IV drugs. [facility] Medical History Anxiety Depression History of cardiac pacemaker Osteoporosis Pacemaker Smoker Substance abuse Home Medications cyclobenzaprine 10 mg PO BID 06/04/21 [History Last Taken 2 Days Ago ~06/02/21] famotidine 20 mg PO DAILY 06/04/21 [History Last Taken 2 Days Ago ~06/02/21] furosemide 40 mg PO DAILY 06/04/21 [History Last Taken 2 Days Ago ~06/02/21] potassium chloride [Klor-Con M20] 20 meq PO DAILY 06/04/21 [History Last Taken 2 Days Ago ~06/02/21] sertraline 100 mg PO DAILY 06/04/21 [History Last Taken 2 Days Ago ~06/02/21] trazodone 50 mg PO DAILY 06/04/21 [History Last Taken 2 Days Ago ~06/02/21] Allergy/AdvReac Type Severity Reaction Status Date / Time Iodinated Contrast Media [CT] Allergy Hives Verified 06/04/21 14:45 Social History Smoking Status: Current every day smoker tobacco type: cigarettes alcohol intake: never substance use type: does not use ROS ROS Narrative Last menstrual period was 7 8 days ago. She does have a remote history of chlamydia when she was 16 but none since. Denies any vaginal discharge. Denies any dysuria but states that her urine is darker in color. No shortness of breath. She no COVID-19 contacts. She has not been vaccinated for COVID-19. Decreased oral intake. All review of systems were negative except as mentioned above in the history of present illness and the other review of systems. She states that she does have a history of a foot infection that does not have an external source. States it is difficult to walk on her left foot due to pain. Vital Signs Vital Signs Vital Signs: 06/04/21 14:42 06/04/21 14:44 06/04/21 14:55 Temperature 37.2 C 37.2 C Temperature Source Oral Oral Pulse Rate 117 H 117 H Respiratory Rate 16 16 Respiratory Effort Normal Non-Labored Blood Pressure 123/63 H 123/63 H Blood Pressure Mean 83 83 Pulse Ox 95 95 Oxygen Delivery Method Room Air Room Air 06/04/21 17:12 Temperature 36.9 C Temperature Source Oral Pulse Rate 88 Respiratory Rate 14 Respiratory Effort Blood Pressure 116/64 Blood Pressure Mean 81 Pulse Ox 98 Oxygen Delivery Method Room Air Weight Weight: 49.895 kg Body Mass Index (BMI) 21.4 Physical Exam Const alert HEENT normocephalic and head/scalp atraumatic Resp normal respiratory effort, no retractions, no use of accessory muscles and clear to auscultation bilaterally Cardio regular rate, regular rhythm, S1 normal heart sound and S2 normal heart sound GI normal to inspection, nondistended, normoactive bowel sounds, soft to palpation and non-distended Extremity normal to inspection Skin no rashes or lesions noted and no wounds Neuro Sensorium / Orientation: awake and alert Psych affect normal Results Lab / Micro Data Result Diagrams: 06/04/21 15:40 06/04/21 15:40 Labs: Laboratory Results - last 24 hr 06/04/21 15:40: WBC 6.0, RBC 3.69 L, Hgb 10.4 L, Hct 32.6 L, MCV 88.3, MCH 28.2, MCHC 31.9 L, RDW Std Deviation 54.9 H, RDW Coeff of Yaima 16.9 H, Plt Count 156, MPV 11.2, Immature Gran % (Auto) 1.300 H, Neut % (Auto) 84.3 H, Lymph % (Auto) 5.6 L, [place] % (Auto) 8.1, Eos % (Auto) 0.5, Baso % (Auto) 0.2, Absolute Neuts (auto) 5.1, Absolute Lymphs (auto) 0.34 L, Nucleated RBC % 0, Differential Comment SCANNED 06/04/21 15:40: Sodium 136, Potassium 2.9 L, Chloride 105, Carbon Dioxide 22.0, Anion Gap 9, BUN 30 H, Creatinine 3.52 H, Estim Creat Clear Calc 17.55, Est GFR (MDRD) Af Amer 20 L, Est GFR (MDRD) Non-Af 17 L, BUN/Creatinine Ratio 8.5 L, Glucose 136 H, Calcium 8.4 L, Total Bilirubin 2.10 H, AST 17, ALT 19, Alkaline Phosphatase 31 L, Total Protein 7.4, Albumin 2.8 L, Globulin 4.6 H, Albumin/Globulin Ratio 0.6 L 06/04/21 15:40: Lactic Acid 1.4 Micro: Microbiology 06/04/21 15:30 Nasal Secretion SARS-CoV-2 Antigen (Rapid) - Final Radiology Impression Chest X-Ray 06/04/21 16:20 IMPRESSION: No acute cardiopulmonary disease. Electronically Signed: Jassi Dietrich DO at 16:46 EDT Tel [phone], Service support , Assessment & Plan Assessment/Plan (1) ELOISA (acute kidney injury): (2) Hypokalemia: (3) Fever: QUALIFIERS: Fever type: unspecified Qualified Code(s): R50.9 - Fever, unspecified PLAN: 1. Acute kidney injury Suspect prerenal Continue with IV fluids Check urine studies Check renal ultrasound Hold furosemide which patient states that she has not been taking much lately anyway. 2. Hypokalemia Replace Check magnesium 3. Fever Blood cultures performed in the ER Check UA and urine culture Concern is for recurrent endocarditis or other infectious etiology. Currently afebrile but patient did take acetaminophen prior to arrival. 4. History of tricuspid valve bioprosthetic endocarditis Patient was to follow-up with [facility] infectious disease unit in the coming weeks Follow-up on blood cultures and if positive may need to reconsider checking echocardiogram or transfer to [facility] 5. VTE prophylaxis with subcu heparin Charges/Coding Visit Charges Inpatient E&M: 99141 Init Hosp L3
--- NOTE | 2021-06-04 18:25 | US_ITS ---
STUDY: RENAL ULTRASOUND - COMPLETE REASON FOR EXAM: Female, 25 years old. Acute kidney injury. TECHNIQUE: Ultrasound evaluation of the kidneys was performed with real-time and static eldridge-scale imaging. COMPARISON: None. FINDINGS: RIGHT KIDNEY: Normal location of the right kidney, which is enlarged in size. The right kidney measures 12.6 cm. There is increased renal cortical echogenicity. The renal cortex measures 11.5 cm. There is no right renal mass or cyst. There are no right renal calculi. There is no right hydronephrosis. DISTAL RIGHT URETER: There is non-visualization of the distal right ureter. There is no demonstrated right ureterovesical junction calculus. There is no demonstrated right ureteral jet. LEFT KIDNEY: Normal location of the left kidney, which is enlarged in size. The left kidney measures 13.4 cm. Increased renal cortical echogenicity. The renal cortex measures 2.4 cm. There is no left renal mass or cyst. There are no left renal calculi. There is no left hydronephrosis. DISTAL LEFT URETER: There is non-visualization of the distal left ureter. There is no demonstrated left ureterovesical junction calculus. There is no demonstrated left ureteral jet. BLADDER: The distended urinary bladder has a volume of 27 ml. The empty urinary bladder has a volume of ml. Bladder wall measures 6 mm in thickness. There is no demonstrated mass within the urinary bladder. There are no demonstrated bladder calculi. Incidental finding is evidence of splenomegaly. Hepatomegaly is also suspected. US/Kidney and Bladder IMPRESSION: 1. Increased renal cortical echogenicity consistent with medical renal disease. 2. Poorly distended urinary bladder without other obvious abnormality. 3. Hepatosplenomegaly. Electronically Signed: Jassi Dietrich DO at 20:53 EDT Tel [phone], Service support ,
[2021-06-04 18:50] VITALS: BP 117/81; PULSE 97; RESP 18; TEMP 37.2; O2SAT 99
[2021-06-04 19:27] VITALS: BP 119/61; PULSE 95; RESP 18; TEMP 36.9; O2SAT 100
[2021-06-04 19:31] VITALS: BMI 21.6
[2021-06-04 19:36] LABS: Internal QC Validated? YES +Cl - CLEAR BKGD; Pregnancy, Serum, hCG Quali. NEGATIVE Negative
[2021-06-04] MEDS: 0.9% Normal Saline 1,000 ML 150 ML IV (20:15)
[2021-06-04] MEDS: 0.9% Saline Lock 10 ML Syringe IV (20:15)
[2021-06-04] MEDS: Acetaminophen 325 MG Tablet 650 MG PO (22:28)
[2021-06-04] MEDS: cycloBENZAPRine HCl 10 MG Tablet PO (22:29)
--- NOTE | 2021-06-04 22:48 | NURSING ---
covid 19 emergency charting initiated on 06/04/21 @ 7757.
[2021-06-05] MEDS: Potassium Chloride Oral Tablet 20 MEQ 40 MEQ PO (00:34)
[2021-06-05 02:11] VITALS: BP 102/58; PULSE 96; RESP 18; TEMP 37; O2SAT 98
[2021-06-05] MEDS: 0.9% Normal Saline 1,000 ML 150 ML IV ×3 (02:17→18:17)
--- NOTE | 2021-06-05 04:51 | PCM.RX.CS ---
Consult Pharmacy has been consulted to manage selected antiobiotic: Vancomycin Type of Consult: New start Labs: Sodium 136 mmol/L (136-145) 06/04/21 15:40 Potassium 2.9 mmol/L (3.5-5.1) L 06/04/21 15:40 Chloride 105 mmol/L (98-107) 06/04/21 15:40 Carbon Dioxide 22.0 mmol/L (21.0-32.0) 06/04/21 15:40 Anion Gap 9 (5-15) 06/04/21 15:40 BUN 30 mg/dL (7-18) H 06/04/21 15:40 Creatinine 3.52 mg/dL (0.55-1.02) H 06/04/21 15:40 Est GFR (MDRD) Af Amer 20 mL/min (>60) L 06/04/21 15:40 Est GFR (MDRD) Non-Af 17 mL/min (>60) L 06/04/21 15:40 BUN/Creatinine Ratio 8.5 RATIO (10-20) L 06/04/21 15:40 Glucose 136 mg/dL (74-106) H 06/04/21 15:40 Microbiology: Microbiology 06/04/21 15:40 Blood Culture (Wb) - Left Forearm Blood Culture - Preliminary 06/04/21 15:30 Nasal Secretion SARS-CoV-2 Antigen (Rapid) - Final Goal Trough: 15-20 mcg/mL Pharmacy Plan for Drug Dosing: Pharmacy Service will continue to monitor and adjust dosing as required. Medications Vancomycin HCl 1,250 mg/ (Sodium Chloride) 275 mls @ 167 mls/hr IV X1 ONE Stop: 06/05/21 05:38 Last Admin: 06/05/21 04:40 Dose: 167 mls/hr Documented by: PER SCr GIVE LOADING DOSE AND DRAW RANDOM LEVEL ON 06/06 @ 0600 Follow-Up Labs: Trough Vancomycin Labs to be done on [date and time ordered]: 06/06 RANDOM WITH AM LABS
[2021-06-05 08:45] LABS: Magnesium 1.5 mg/dL (1.6-2.6)
[2021-06-05 09:00] VITALS: BP 121/65; PULSE 116; PULSE 120; RESP 18; TEMP 37.7; O2SAT 97
--- NOTE | 2021-06-05 09:07 | CASEMGMT ---
According to [facility]'s website, the following tertiary facilities are in network: [facility], [place], [facility], [facility], [facility], [facility], [place], [facility] and .
[2021-06-05] MEDS: Potassium Chloride Oral Tablet 20 MEQ PO (09:15)
[2021-06-05] MEDS: Famotidine 20 MG Tablet PO (09:15)
[2021-06-05] MEDS: cycloBENZAPRine HCl 10 MG Tablet PO ×2 (09:15→21:12)
[2021-06-05] MEDS: Acetaminophen 325 MG Tablet 650 MG PO ×2 (09:15→21:21)
[2021-06-05] MEDS: Sertraline 100 MG Tablet PO (09:16)
[2021-06-05 09:17] LABS: Bacteria 0 SEEN /hpf (None Seen); Mucous, Urine 0 SEEN /hpf (<or=2+)
[2021-06-05 09:24] LABS: Color, Urine Red (Yellow); Glucose, Dipstick Normal (Normal); Ketone-Dipstick 5 mg/dl (Negative); Leukocyte Esterase-Dipstick 100 /ul (Negative); Nitrite-Dipstick Negative (Negative); Occult Blood-Urine 250 /ul (Negative); Protein-Dipstick 500 mg/dl (Negative); Urine Bilirubin Dipstick Negative (Negative); Urine Clarity Turbid (Clear); Urine Urobilinogen 1 mg/dl (Normal); Urine pH 6.5 (5.0 - 8.0)
[2021-06-05 09:43] LABS: Red Blood Cells-Urine > 100 SEEN /hpf (0-5)
[2021-06-05 09:44] LABS: Squamous Epithelial Cells - UA 0-5 SEEN /hpf (5-10); White Blood Cells 5-10 SEEN /hpf (0-5)
[2021-06-05] MEDS: Heparin Injection (Vial) 5,000 UNIT/ML VIAL 5000 UNIT SC ×2 (10:54→21:13)
[2021-06-05 12:44] VITALS: BP 105/63; PULSE 97; RESP 16; TEMP 36.6; O2SAT 97
--- NOTE | 2021-06-05 13:11 | CASEMGMT ---
YOGESH HU Assessment: Face to Face with pt for initial transition planning/care coordination assessment. YOGESH HU introduced self and role at [facility], pt voices understanding and consents to assessment. Pt is A/O x4 and answers all questions appropriately at this time. Pt sitting up in bed in no distress. Care providers, pharmacy, and demographics verified/updated. Admitting Dx: ELOISA PCP: Pt states she does not have a PCP. Offered to give a local directory of healthcare providers. Pt states she already received one. Specialists: ID and nephro at [facility]. Pt is unaware of the names. Preferred Pharmacy: [facility] [place] Insurance: [facility] Prescription Benefit: yes LW/HPOA: Pt denies having a LW/DPOA and denies need for info regarding. LNOK: Clifford Pedersen, grandpa; Amparo Pedersen, grandma Living Arrangements: Pt lives with mother and brother ( works out of state, not home much) in a two story house with 4-5 steps to enter. Pt reports she is I in ADL's and denies concerns at home. Transportation: Pt states she is able to drive but does not have a car. She states her mother transports her to medical appts. DME/HHC/SNF: Pt has a rollator that she uses all of the time, she denies previous HHC and states she was in a SNF in [place] last year after a hospitalization. She does not know the name of it. Pt states she does not drink alcohol, do illegal or street drugs. She states she does smoke half a pack of cigarettes a day. Pt currently is awaiting a bed for transfer. Pt states no further concerns/needs. CM to follow. Advised pt to ask CM if any further question/concerns/needs arise, voices understanding. Pt Goal: Transfer to Plan: Transfer to
[2021-06-05 14:20] VITALS: BP 102/61; PULSE 98; RESP 16; TEMP 37; O2SAT 98
--- NOTE | 2021-06-05 14:50 | PCM.PN.HOSP ---
Subjective Subjective Earlier decline repeat lab attempt, then decline SQ heparin. Cultures came back and showed staph aureus and was started on abx. Objective Data Objective Data Vital Signs: Vital Signs Temp Pulse Resp BP Pulse Ox 37.0 C 98 16 102/61 98 06/05/21 14:20 06/05/21 14:20 06/05/21 14:20 06/05/21 14:20 06/05/21 14:20 Oxygen Delivery Method Room Air Weight: 50 kg Body Mass Index (BMI) 21.6 Intake & Output: Intake and Output for Last 24 Hours 06/03/21 06/04/21 06/05/21 23:59 23:59 23:59 Intake Total 1000 / 1000 2730.5 / 2730.5 Output Total 450 / 450 Balance 1000 / 1000 2280.5 / 2280.5 Lab / Micro Data Result Diagrams: 06/04/21 15:40 06/04/21 15:40 Labs: Laboratory Results - last 24 hr 06/04/21 15:40: WBC 6.0, RBC 3.69 L, Hgb 10.4 L, Hct 32.6 L, MCV 88.3, MCH 28.2, MCHC 31.9 L, RDW Std Deviation 54.9 H, RDW Coeff of Yaima 16.9 H, Plt Count 156, MPV 11.2, Immature Gran % (Auto) 1.300 H, Neut % (Auto) 84.3 H, Lymph % (Auto) 5.6 L, [place] % (Auto) 8.1, Eos % (Auto) 0.5, Baso % (Auto) 0.2, Absolute Neuts (auto) 5.1, Absolute Lymphs (auto) 0.34 L, Nucleated RBC % 0, Differential Comment SCANNED 06/04/21 15:40: Sodium 136, Potassium 2.9 L, Chloride 105, Carbon Dioxide 22.0, Anion Gap 9, BUN 30 H, Creatinine 3.52 H, Estim Creat Clear Calc 17.55, Est GFR (MDRD) Af Amer 20 L, Est GFR (MDRD) Non-Af 17 L, BUN/Creatinine Ratio 8.5 L, Glucose 136 H, Calcium 8.4 L, Total Bilirubin 2.10 H, AST 17, ALT 19, Alkaline Phosphatase 31 L, Total Protein 7.4, Albumin 2.8 L, Globulin 4.6 H, Albumin/Globulin Ratio 0.6 L 06/04/21 15:40: Lactic Acid 1.4 06/04/21 15:40: Serum , Qual NEGATIVE 06/04/21 15:40: Magnesium 1.5 L 06/05/21 09:00: Urine Color Red, Urine Clarity Turbid, Urine pH 6.5, Ur Specific [place] 1.010, Urine Protein 500 H, Urine Glucose (UA) Normal, Urine Ketones 5 H, Urine Occult Blood 250 H, Urine Nitrite Negative, Urine Bilirubin Negative, Urine Urobilinogen 1 H, Ur Leukocyte Esterase 100 H, Urine RBC > 100 SEEN, Urine WBC 5-10 SEEN, Ur Squamous Epith Cells 0-5 SEEN, Urine Bacteria 0 SEEN, Urine Mucus 0 SEEN Micro: Microbiology 06/04/21 18:25 Blood Culture (Wb) - Left Forearm Blood Culture - Preliminary 06/04/21 15:40 Blood Culture (Wb) - Left Forearm Bacteria Detection (PCR) - Final Staphylococcus aureus 06/04/21 15:40 Blood Culture (Wb) - Left Forearm Blood Culture - Preliminary 06/04/21 15:30 Nasal Secretion SARS-CoV-2 Antigen (Rapid) - Final Radiography Diagnostic Testing: Radiology Impression Chest X-Ray 06/04/21 16:20 IMPRESSION: No acute cardiopulmonary disease. Electronically Signed: Jassi Dietrich DO at 16:46 EDT Tel [phone], Service support , Renal Ultrasound 06/04/21 18:25 IMPRESSION: 1. Increased renal cortical echogenicity consistent with medical renal disease. 2. Poorly distended urinary bladder without other obvious abnormality. 3. Hepatosplenomegaly. Electronically Signed: Jassi Dietrich DO at 20:53 EDT Tel [phone], Service support , Physical Exam Const alert Resp normal respiratory effort, no retractions, no use of accessory muscles and clear to auscultation bilaterally Cardio regular rate and regular rhythm GI normal to inspection, nondistended, normoactive bowel sounds, soft to palpation, non-tender and non-distended Extremity normal to inspection Neuro Sensorium / Orientation: awake and alert Assessment & Plan Assessment/Plan (1) Bacteremia: (2) ELOISA (acute kidney injury): (3) Hypokalemia: (4) Fever: QUALIFIERS: Fever type: unspecified Qualified Code(s): R50.9 - Fever, unspecified PLAN: 1. Bacteremia S. aureus concern for bioprostetic heart valve endocarditis given prior history Pt wants to be transferred to , not [facility] [place] at and pt has been accepted, but bed availability pending. DC pip/tazo and continue vanc. 2. Acute kidney injury Suspect prerenal Continue with IV fluids Check urine studies Renal ultrasound negative for acute process Hold furosemide which patient states that she has not been taking much lately anyway. 3. Hypokalemia Replace Check magnesium 4. Fever Blood cultures performed in the ER Check UA and urine culture Concern is for recurrent endocarditis or other infectious etiology. Currently afebrile but patient did take acetaminophen prior to arrival. 5. History of tricuspid valve bioprosthetic endocarditis Patient was to follow-up with [facility] infectious disease unit in the coming weeks Follow-up on blood cultures and if positive may need to reconsider checking echocardiogram or transfer to [facility] 6. VTE prophylaxis with subcu heparin Greater than 35 minutes of which greater than 50% of time was counseling the patient about endocarditis and the need for transfer to tertiary facility for evaluation of this tricuspid valve and also discussing with [facility] and the attending physician there about the patient's case. I did also have the conversation about the patient about refusal of lab draw and therapy. Told her that it is her right to refuse therapy but if she wants to get better she needs to allow us to work with her to try to get her better. Patient denies stabbing eye contact get her arms closed and looked at the window without offering much in the way of any kind of further interaction. I did let the physician at [facility] know this.
[2021-06-05 16:00] VITALS: PULSE 90
[2021-06-05 21:11] VITALS: BP 131/69; PULSE 107; RESP 16; TEMP 37.2; O2SAT 95
[2021-06-05] MEDS: traZODone 50 MG Tablet PO (21:12)
[2021-06-06] MEDS: 0.9% Normal Saline 1,000 ML 150 ML IV ×4 (00:51→20:16)
[2021-06-06 00:52] VITALS: BP 101/58; PULSE 95; RESP 16; TEMP 37.1; O2SAT 94
[2021-06-06] MEDS: 0.9% Saline Lock 10 ML Syringe IV (06:21)
[2021-06-06 06:22] VITALS: BP 104/60; PULSE 84; RESP 18; TEMP 36.4; O2SAT 99
[2021-06-06 06:29] LABS: Absolute Lymphocyte Count 0.89 X10^3/uL (0.83-4.51); Absolute Neutrophil Count 4.5 X10^3/uL (2.0-7.7); Basophil# 0.03 X10^3/uL; Basophil% 0.5 % (0-1); Eosinophil# 0.15 X10^3/uL; Eosinophils% 2.4 % (0-5); Hematocrit 29.2 % (37-47); Hemoglobin 8.9 g/dL (12.0-15.0); Lymphocyte # 0.89 X10^3/ul (0.83-4.51); Lymphocyte % 14.5 % (19-41); Mean Corp Hgb Conc 30.5 g/dL (32-36); Mean Corpuscular Hgb 27.9 pg (27.0-32.0); Mean Corpuscular Volume 91.5 fL (81-99); Mean Platelet Vol. 11.8 fl (6.2-12.0); Monocyte# 0.53 X10^3/uL; Monocyte% 8.6 % (0-10); NRBC Flagged by Analyzer 0 % (0-5); Neutrophil % 73.2 % (47-70); Platelet Count 149 K/mm3 (150-450); RBC Distribution Width CV 17.4 % (11.6-14.6); RBC Distribution Width SD 59.3 fl (35.1-43.9); Red Blood Count 3.19 M/mm3 (4.2-5.4); White Blood Count 6.2 K/mm3 (4.4-11.0)
[2021-06-06 06:52] LABS: ALB/GLOB Ratio 0.6 RATIO (0.9-2.4); AST(SGOT) 14 U/L (15-37); Alanine Aminotransfer ALT/SGPT 13 U/L (13-56); Albumin, Serum 2.1 g/dL (3.2-5.0); Alkaline Phosphatase 31 U/L (45-117); Anion Gap 11 (5-15); BUN 37 mg/dL (7-18); BUN/Creat Ratio 8.9 RATIO (10-20); Calcium,Total 7.9 mg/dL (8.5-10.1); Chloride 114 mmol/L (98-107); Creatinine, Serum 4.17 mg/dL (0.55-1.02); EST Glomerular Filtration Rate 14 mL/min (>60); Est Glom Filt Rate - Afr Amer 17 mL/min (>60); Estimated Creatinine Clearance 16.28 ml/min; Globulin 3.6 g/dL (2.2-4.2); Glucose 98 mg/dL (74-106); Potassium 3.9 mmol/L (3.5-5.1); Protein, Total 5.7 g/dL (6.4-8.2); Sodium Level 140 mmol/L (136-145)
[2021-06-06 06:59] LABS: Vancomycin, Random Level 25.6 ug/mL (0.0-15.0)
--- NOTE | 2021-06-06 07:16 | PCM.RX.CS ---
Consult Pharmacy has been consulted to manage selected antiobiotic: Vancomycin Type of Consult: Follow-up Labs: Sodium 140 mmol/L (136-145) 06/06/21 06:06 Potassium 3.9 mmol/L (3.5-5.1) 06/06/21 06:06 Chloride 114 mmol/L (98-107) H 06/06/21 06:06 Carbon Dioxide 15.0 mmol/L (21.0-32.0) L 06/06/21 06:06 Anion Gap 11 (5-15) 06/06/21 06:06 BUN 37 mg/dL (7-18) H 06/06/21 06:06 Creatinine 4.17 mg/dL (0.55-1.02) H 06/06/21 06:06 Est GFR (MDRD) Af Amer 17 mL/min (>60) L 06/06/21 06:06 Est GFR (MDRD) Non-Af 14 mL/min (>60) L 06/06/21 06:06 BUN/Creatinine Ratio 8.9 RATIO (10-20) L 06/06/21 06:06 Glucose 98 mg/dL (74-106) 06/06/21 06:06 Random Vancomycin 25.6 ug/mL (0.0-15.0) H 06/06/21 06:06 Microbiology: Microbiology 06/04/21 15:40 Blood Culture (Wb) - Left Forearm Bacteria Detection (PCR) - Final Staphylococcus aureus mecA Resistance Marker 06/04/21 15:40 Blood Culture (Wb) - Left Forearm Blood Culture - Preliminary 06/04/21 18:25 Blood Culture (Wb) - Left Forearm Blood Culture - Preliminary 06/04/21 15:30 Nasal Secretion SARS-CoV-2 Antigen (Rapid) - Final Goal Trough: 15-20 mcg/mL Pharmacy Plan for Drug Dosing: VANCOMYCIN LEVEL RECEIVED Current Vancomycin Dose: last dose was 06/05/21 at 0440 = 1250mg Number of Doses Received: x1 Vancomycin Level: 25.6 (random level 06/06/21 at 0606) Hours Since Last Dose: ~25.5 Renal Function: SrCr has increased from 3.52 to 4.17 Renal Function Trend: SrCr is increasing Lab/Micro: Vancomycin Plan/Comments: random level resulted >20. recommend continuing to hold and recheck level 9/3/21 at 0600 Pending Level: 06/07/21 at 0600 (random level) Pharmacy Service will continue to monitor and adjust dosing as required. Follow-Up Labs: Trough Vancomycin - 06/07/21 at 0600 (random level)
--- NOTE | 2021-06-06 08:55 | PN.HOSP_ITS ---
Subjective Subjective Feeling better. No difficulties with drawing lab work today. Objective Data Objective Data Vital Signs: Vital Signs Temp Pulse Resp BP Pulse Ox 36.4 C L 84 18 104/60 99 06/06/21 06:22 06/06/21 06:22 06/06/21 06:22 06/06/21 06:22 06/06/21 06:22 Oxygen Delivery Method Room Air Weight: 50 kg Body Mass Index (BMI) 21.6 Intake & Output: Intake and Output for Last 24 Hours 06/04/21 06/05/21 06/06/21 23:59 23:59 23:59 Intake Total 1000 / 1000 3730.5 / 3730.5 1810 / 1810 Output Total 450 / 450 275 / 275 Balance 1000 / 1000 3280.5 / 3280.5 1535 / 1535 Lab / Micro Data Result Diagrams: 06/06/21 06:06 06/06/21 06:06 Labs: Laboratory Results - last 24 hr 06/05/21 09:00: Urine Color Red, Urine Clarity Turbid, Urine pH 6.5, Ur Specific [place] 1.010, Urine Protein 500 H, Urine Glucose (UA) Normal, Urine Ketones 5 H , Urine Occult Blood 250 H, Urine Nitrite Negative, Urine Bilirubin Negative, Urine Urobilinogen 1 H, Ur Leukocyte Esterase 100 H, Urine RBC > 100 SEEN, Urine WBC 5-10 SEEN, Ur Squamous Epith Cells 0-5 SEEN, Urine Bacteria 0 SEEN, Urine Mucus 0 SEEN 06/06/21 06:06: Random Vancomycin 25.6 H 06/06/21 06:06: WBC 6.2, RBC 3.19 L, Hgb 8.9 L, Hct 29.2 L, MCV 91.5, MCH 27.9, MCHC 30.5 L, RDW Std Deviation 59.3 H, RDW Coeff of Yaima 17.4 H, Plt Count 149 L, MPV 11.8, Immature Gran % (Auto) 0.800, Neut % (Auto) 73.2 H, Lymph % (Auto) 14.5 L, [place] % (Auto) 8.6, Eos % (Auto) 2.4, Baso % (Auto) 0.5, Absolute Neuts (auto) 4.5, Absolute Lymphs (auto) 0.89, Nucleated RBC % 0 06/06/21 06:06: Sodium 140, Potassium 3.9, Chloride 114 H, Carbon Dioxide 15.0 L , Anion Gap 11, BUN 37 H, Creatinine 4.17 H, Estim Creat Clear Calc 16.28, Est GFR (MDRD) Af Amer 17 L, Est GFR (MDRD) Non-Af 14 L, BUN/Creatinine Ratio 8.9 L, Glucose 98, Calcium 7.9 L, Total Bilirubin 1.50 H, AST 14 L, ALT 13, Alkaline Phosphatase 31 L, Total Protein 5.7 L, Albumin 2.1 L, Globulin 3.6, Albumin/Globulin Ratio 0.6 L Micro: Microbiology 06/04/21 15:40 Blood Culture (Wb) - Left Forearm Bacteria Detection (PCR) - Final Staphylococcus aureus mecA Resistance Marker 06/04/21 15:40 Blood Culture (Wb) - Left Forearm Blood Culture - Preliminary 06/04/21 18:25 Blood Culture (Wb) - Left Forearm Blood Culture - Preliminary 06/04/21 15:30 Nasal Secretion SARS-CoV-2 Antigen (Rapid) - Final Physical Exam Const alert Exam Limitations: no limitations Resp normal respiratory effort, no retractions, no use of accessory muscles and clear to auscultation bilaterally Cardio regular rate and regular rhythm Neuro Sensorium / Orientation: awake and alert Assessment & Plan Assessment/Plan (1) Bacteremia: (2) ELOISA (acute kidney injury): (3) Hypokalemia: (4) Fever: QUALIFIERS: Fever type: unspecified Qualified Code(s): R50.9 - Fever, unspecified PLAN: 1. Bacteremia S. aureus, MRSA concern for bioprostetic heart valve endocarditis given prior history Pt wants to be transferred to , [facility] 06/05: [place] at and pt has been accepted, but bed availability pending. continue vanc. 2. Acute kidney injury Suspect prerenal + ATN Continue with IV fluids Check urine studies Renal ultrasound negative for acute process Hold furosemide which patient states that she has not been taking much lately anyway. 3. Hypokalemia resolved 4. Fever Blood cultures performed in the ER UA negative for UTI Concern is for recurrent endocarditis or other infectious etiology. Currently afebrile but patient did take acetaminophen prior to arrival. 5. History of tricuspid valve bioprosthetic endocarditis Patient was to follow-up with [facility] infectious disease unit in the coming weeks Follow-up on blood cultures and if positive may need to reconsider checking echocardiogram or transfer to [facility] 6. VTE prophylaxis with subcu heparin Awaiting on bed opening up at [facility]. Pt currently HDS Charges/Coding Visit Charges Inpatient E&M: 89740 Subs Hosp L2
[2021-06-06 11:24] VITALS: BP 112/64; PULSE 96; RESP 16; TEMP 36.9; O2SAT 99
[2021-06-06] MEDS: Famotidine 20 MG Tablet PO (11:28)
[2021-06-06] MEDS: Sertraline 100 MG Tablet PO (11:28)
[2021-06-06] MEDS: Potassium Chloride Oral Tablet 20 MEQ PO (11:28)
[2021-06-06] MEDS: cycloBENZAPRine HCl 10 MG Tablet PO ×2 (11:28→22:22)
[2021-06-06] MEDS: Heparin Injection (Vial) 5,000 UNIT/ML VIAL 5000 UNIT SC ×2 (11:28→22:21)
[2021-06-06 12:28] LABS: Urine Sodium 60 mmol/L (Not Establ.)
[2021-06-06 14:56] VITALS: BP 108/66; PULSE 93; RESP 16; TEMP 36.9; O2SAT 97
[2021-06-06 22:19] VITALS: BP 107/55; PULSE 96; RESP 18; TEMP 37; O2SAT 100
[2021-06-06] MEDS: Acetaminophen 325 MG Tablet 650 MG PO (22:21)
[2021-06-06] MEDS: traZODone 50 MG Tablet PO (22:22)
[2021-06-07 02:55] VITALS: BP 110/70; PULSE 87; RESP 18; TEMP 36.6; O2SAT 97
[2021-06-07] MEDS: 0.9% Normal Saline 1,000 ML 150 ML IV ×2 (02:55→15:30)
[2021-06-07] MEDS: Ondansetron 4 MG/2 ML Vial IV ×2 (03:03→15:37)
--- NOTE | 2021-06-07 07:13 | ECHOD_ITS ---
Reason For Study: Bacteremia Procedure This was a 2D Doppler, Color Flow transthoracic echocardiogram. Exam performed portable in patient room. Left Ventricle Normal LV size. The estimated ejection fraction is 65 %. Normal diastology for age. No regional wall motion abnormalities noted. Right Ventricle Normal RV size. Normal systolic function. Atria The left atrium is mildly enlarged. Normal right atrium. Normal atrial septum. Mitral Valve There is no mitral valve stenosis. Trivial mitral valve insufficiency. Tricuspid Valve No vegetations identified. There is no tricuspid stenosis. Trivial tricuspid valve insufficiency. Unable to estimate RV systolic pressure due to insufficient tricuspid regurgitant envelope. Annuloplasty ring noted in the tricuspid position. Aortic Valve Trisinus/trileaflet aortic valve. There is no aortic stenosis. No aortic valve insufficiency. Pulmonic Valve There is no pulmonic valvular stenosis. Trivial pulmonic valve insufficiency. Great Vessels Normal aortic root. Pericardium/Pleural Trivial pericardial effusion. MMode/2D Measurements & Calculations LVIDd: 4.4 cm IVSd: 1.4 cm Ao root diam: 2.8 cm LVIDs: 3.0 cm LVPWd: 1.1 cm FS: 31.4 % LAV(MOD-bp): 60.4 ml LVAd ap4: 29.0 cm2 SV(MOD-sp4): 51.3 ml LAV(MOD-bp) Indexed: 40.9 ml/m2 LVLd ap4: 8.3 cm LAV(MOD-sp2): 59.6 ml EDV(MOD-sp4): 83.1 ml LAV(MOD-sp4): 58.6 ml EDV(sp4-el): 85.7 ml LVAs ap4: 16.5 cm2 LVLs ap4: 7.0 cm ESV(MOD-sp4): 31.8 ml ESV(sp4-el): 33.0 ml EF(MOD-sp4): 61.8 % EF(sp4-el): 61.5 % SV(sp4-el): 52.7 ml LA A4 area: 19.9 cm2 LA dimension(2D): 4.4 cm RA A4 area: 16.1 cm2 Time Measurements MV dec time: 0.22 sec Doppler Measurements & Calculations MV E max richard: 161.2 cm/sec Lat Peak E' Richard: 11.9 cm/sec Med Peak E' Richard: 5.3 cm/sec MV A max richard: 76.0 cm/sec E/E' lat: 13.6 E/E' med: 30.5 MV E/A: 2.1 MV V2 max: 170.8 cm/sec MV P1/2t max richard: 172.1 cm/sec TV V2 max: 240.5 cm/sec MV max P.7 mmHg MV P1/2t: 65.6 msec TV max P.1 mmHg MV V2 mean: 87.1 cm/sec TV V2 mean: 179.8 cm/sec MV mean P.6 mmHg MV dec slope: 768.7 cm/sec2 TV mean P.0 mmHg MV V2 VTI: 36.6 cm MVA(P1/2t): 3.4 cm2 [facility] max: 112.7 cm/sec ECHO/Echo Complete Interpretation Summary The estimated ejection fraction is 65 %. Normal diastology for age. Trivial mitral valve insufficiency. Annuloplasty ring noted in the tricuspid position No vegetations identified. Ordering Physician: Al Bass Performed By: Shyla Morris, CHRISTIN, RVT
--- NOTE | 2021-06-07 09:05 | RAD_ITS ---
History: abdominal distention Abdomen: Findings: AP supine view of the abdomen demonstrates normal bowel gas pattern. Small bilateral pleural effusions noted. Bulging flanks may represent presence of ascites. No pathologic calcification or organomegaly. Psoas muscle margins are well delineated. No acute osseous abnormality. IMPRESSION: Question ascites.. Small bilateral pleural effusions. at 0929 Reported and signed by: Lonnie Quiñonez MD Electronically Signed: Lonnie Quiñonez MD at 9:28 EDT Tel , Service support , RAD/Abdomen Single View (Portable)
[2021-06-07] MEDS: cycloBENZAPRine HCl 10 MG Tablet PO ×2 (10:14→21:10)
[2021-06-07] MEDS: Potassium Chloride Oral Tablet 20 MEQ PO (10:14)
[2021-06-07] MEDS: Heparin Injection (Vial) 5,000 UNIT/ML VIAL 5000 UNIT SC ×2 (10:15→21:10)
[2021-06-07] MEDS: Famotidine 20 MG Tablet PO (10:15)
[2021-06-07] MEDS: Sertraline 100 MG Tablet PO (10:15)
[2021-06-07 10:26] VITALS: BP 118/84; PULSE 90; RESP 16; TEMP 36.6; O2SAT 98
[2021-06-07 11:28] LABS: Absolute Lymphocyte Count 1.03 X10^3/uL (0.83-4.51); Absolute Neutrophil Count 6.9 X10^3/uL (2.0-7.7); Basophil# 0.05 X10^3/uL; Basophil% 0.6 % (0-1); Eosinophil# 0.11 X10^3/uL; Eosinophils% 1.3 % (0-5); Hematocrit 31.1 % (37-47); Hemoglobin 9.4 g/dL (12.0-15.0); Lymphocyte # 1.03 X10^3/ul (0.83-4.51); Lymphocyte % 11.7 % (19-41); Mean Corp Hgb Conc 30.2 g/dL (32-36); Mean Corpuscular Hgb 27.8 pg (27.0-32.0); Mean Platelet Vol. 10.9 fl (6.2-12.0); Monocyte# 0.61 X10^3/uL; NRBC Flagged by Analyzer 0 % (0-5); Neutrophil # 6.88 X10^3/uL (2.7-7.7); Neutrophil % 78.4 % (47-70); Platelet Count 264 K/mm3 (150-450); RBC Distribution Width CV 17.9 % (11.6-14.6); RBC Distribution Width SD 61.5 fl (35.1-43.9); Red Blood Count 3.38 M/mm3 (4.2-5.4); White Blood Count 8.8 K/mm3 (4.4-11.0)
[2021-06-07 11:39] LABS: Vancomycin, Random Level 18.3 ug/mL (0.0-15.0)
[2021-06-07 11:41] LABS: ALB/GLOB Ratio 0.4 RATIO (0.9-2.4); AST(SGOT) 10 U/L (15-37); Alanine Aminotransfer ALT/SGPT 13 U/L (13-56); Albumin, Serum 1.9 g/dL (3.2-5.0); Alkaline Phosphatase 37 U/L (45-117); Anion Gap 8 (5-15); BUN 38 mg/dL (7-18); BUN/Creat Ratio 7.9 RATIO (10-20); Calcium,Total 8.1 mg/dL (8.5-10.1); Chloride 115 mmol/L (98-107); Creatinine, Serum 4.84 mg/dL (0.55-1.02); EST Glomerular Filtration Rate 12 mL/min (>60); Est Glom Filt Rate - Afr Amer 14 mL/min (>60); Estimated Creatinine Clearance 14.03 ml/min; Globulin 4.3 g/dL (2.2-4.2); Glucose 128 mg/dL (74-106); Potassium 3.8 mmol/L (3.5-5.1); Protein, Total 6.2 g/dL (6.4-8.2); Sodium Level 139 mmol/L (136-145)
--- NOTE | 2021-06-07 13:03 | PHA.PHARE_ITS ---
Consult Pharmacy has been consulted to manage selected antiobiotic: Vancomycin Type of Consult: Follow-up Prior Doses of Antibiotics Received/Current Regimen: received 1250mg IV x1 on 06/05/21 at 04:40 Labs: Sodium 139 mmol/L (136-145) 06/07/21 10:55 Potassium 3.8 mmol/L (3.5-5.1) 06/07/21 10:55 Chloride 115 mmol/L (98-107) H 06/07/21 10:55 Carbon Dioxide 16.0 mmol/L (21.0-32.0) L 06/07/21 10:55 Anion Gap 8 (5-15) 06/07/21 10:55 BUN 38 mg/dL (7-18) H 06/07/21 10:55 Creatinine 4.84 mg/dL (0.55-1.02) H 06/07/21 10:55 Est GFR (MDRD) Af Amer 14 mL/min (>60) L 06/07/21 10:55 Est GFR (MDRD) Non-Af 12 mL/min (>60) L 06/07/21 10:55 BUN/Creatinine Ratio 7.9 RATIO (10-20) L 06/07/21 10:55 Glucose 128 mg/dL (74-106) H 06/07/21 10:55 Random Vancomycin 18.3 ug/mL (0.0-15.0) H 06/07/21 10:55 Microbiology: Microbiology 06/05/21 09:00 Urine, Clean Catch Urine Culture - Final Mixed Gram Positive Organisms 06/04/21 15:40 Blood Culture (Wb) - Left Forearm Bacteria Detection (PCR) - Final Staphylococcus aureus mecA Resistance Marker 06/04/21 15:40 Blood Culture (Wb) - Left Forearm Blood Culture - Final Meth. resistant Staph. aureus 06/04/21 18:25 Blood Culture (Wb) - Left Forearm Blood Culture - Final Staphylococcus aureus 06/05/21 18:05 Blood Culture (Wb) - Right Forearm Blood Culture - Preliminary 06/05/21 15:26 Blood Culture (Wb) - Anticubital Right Blood Culture - Preliminary 06/04/21 15:30 Nasal Secretion SARS-CoV-2 Antigen (Rapid) - Final Weight used for dosin kg Estimated Creatinine Clearance: 14ml/min Goal Trough: 15-20 mcg/mL Pharmacy Plan for Drug Dosing: The vanc random level drawn today at 10:55 came back as 18.3. This is back below 20 so will re-dose with 750mg IV x1 according to [facility] protocol based on the patient's weight. Will recheck a random level in a couple days and determine further dosing from there. Pharmacy Service will continue to monitor and adjust dosing as required. Follow-Up Labs: Trough Vancomycin - random Labs to be done on [date and time ordered]: 06/09/21 0600
--- NOTE | 2021-06-07 14:21 | PN.HOSP_ITS ---
Subjective Subjective No new issues. Bcx again positive. requesting [employer]ist draw blood work. Complains of abdominal distention. Objective Data Objective Data Vital Signs: Vital Signs Temp Pulse Resp BP Pulse Ox 36.6 C 90 16 118/84 H 98 06/07/21 10:26 06/07/21 10:26 06/07/21 10:26 06/07/21 10:06/07/21 10:26 Oxygen Delivery Method Room Air Weight: 50 kg Body Mass Index (BMI) 21.6 Intake & Output: Intake and Output for Last 24 Hours 06/05/21 06/06/21 06/07/21 23:59 23:59 23:59 Intake Total 3730.5 / 3730.5 4310 / 4310 1397.5 / 1397.5 Output Total 450 / 450 275 / 275 Balance 3280.5 / 3280.5 4035 / 4035 1397.5 / 1397.5 Lab / Micro Data Result Diagrams: 06/07/21 10:55 06/07/21 10:55 Labs: Laboratory Results - last 24 hr 06/07/21 10:55: Random Vancomycin 18.3 H 06/07/21 10:55: WBC 8.8, RBC 3.38 L, Hgb 9.4 L, Hct 31.1 L, MCV 92.0, MCH 27.8, MCHC 30.2 L, RDW Std Deviation 61.5 H, RDW Coeff of Yaima 17.9 H, Plt Count 264, MPV 10.9, Immature Gran % (Auto) 1.000 H, Neut % (Auto) 78.4 H, Lymph % (Auto) 11.7 L, [place] % (Auto) 7.0, Eos % (Auto) 1.3, Baso % (Auto) 0.6, Absolute Neuts (auto) 6.9, Absolute Lymphs (auto) 1.03, Nucleated RBC % 0 06/07/21 10:55: Sodium 139, Potassium 3.8, Chloride 115 H, Carbon Dioxide 16.0 L , Anion Gap 8, BUN 38 H, Creatinine 4.84 H, Estim Creat Clear Calc 14.03, Est GFR (MDRD) Af Amer 14 L, Est GFR (MDRD) Non-Af 12 L, BUN/Creatinine Ratio 7.9 L, Glucose 128 H, Calcium 8.1 L, Total Bilirubin 1.00, AST 10 L, ALT 13, Alkaline Phosphatase 37 L, Total Protein 6.2 L, Albumin 1.9 L, Globulin 4.3 H, Albumin/Globulin Ratio 0.4 L Micro: Microbiology 06/05/21 09:00 Urine, Clean Catch Urine Culture - Final Mixed Gram Positive Organisms 06/04/21 15:40 Blood Culture (Wb) - Left Forearm Bacteria Detection (PCR) - Final Staphylococcus aureus mecA Resistance Marker 06/04/21 15:40 Blood Culture (Wb) - Left Forearm Blood Culture - Final Meth. resistant Staph. aureus 06/04/21 18:25 Blood Culture (Wb) - Left Forearm Blood Culture - Final Staphylococcus aureus 06/05/21 18:05 Blood Culture (Wb) - Right Forearm Blood Culture - Preliminary 06/05/21 15:26 Blood Culture (Wb) - Anticubital Right Blood Culture - Preliminary 06/04/21 15:30 Nasal Secretion SARS-CoV-2 Antigen (Rapid) - Final Radiography Diagnostic Testing: Radiology Impression Echocardiogram 06/07/21 07:13 Interpretation Summary The estimated ejection fraction is 65 %. Normal diastology for age. Trivial mitral valve insufficiency. Annuloplasty ring noted in the tricuspid position No vegetations identified. Ordering Physician: Al Bass Performed By: Shyla Morris, RDCS, RVT X-Ray 06/07/21 09:05 Physical Exam Const alert Resp normal respiratory effort, no retractions and no use of accessory muscles Cardio regular rate, regular rhythm, S1 normal heart sound and S2 normal heart sound GI normal to inspection, nondistended, normoactive bowel sounds and soft to palpation GI Narrative: distention. Skin no rashes or lesions noted Assessment & Plan Assessment/Plan (1) Bacteremia: (2) ELOISA (acute kidney injury): (3) Hypokalemia: (4) Fever: QUALIFIERS: Fever type: unspecified Qualified Code(s): R50.9 - Fe juan jose, unspecified PLAN: 1. Bacteremia S. aureus, MRSA concern for bioprostetic heart valve endocarditis given prior history Pt wants to be transferred to , not [facility] 06/05: DW Dr. [place] at and pt has been accepted, but bed availability pending. continue vanc. 06/07: TTE showed no vegetation. Will need TIERNEY, but will defer to tertiary facility. Repeat BCx. 2. Acute kidney injury Suspect prerenal + ATN FENA 5.97% Renal ultrasound negative for acute process Continue to hold furosemide which patient states that she has not been taking much lately anyway. Decreased IVF. Consult nephrology. Strict IsOs, if able. Concern pt may not comply with acute IsOs. 3. Hypokalemia resolved 4. Fever Blood cultures performed in the ER UA negative for UTI Concern is for recurrent endocarditis or other infectious etiology. Currently afebrile but patient did take acetaminophen prior to arrival. 5. History of tricuspid valve bioprosthetic endocarditis Patient was to follow-up with [facility] [place] infectious disease unit in the coming weeks Follow-up on blood cultures and if positive may need to reconsider checking echocardiogram or transfer to [facility] 6. VTE prophylaxis with subcu heparin Awaiting on bed opening up at [facility]. Pt currently HDS Charges/Coding Visit Charges Inpatient E&M: 69313 Subs Hosp L2
[2021-06-07 15:42] VITALS: BP 115/67; PULSE 84; RESP 16; TEMP 36.6; O2SAT 99
[2021-06-07 21:06] VITALS: BP 127/77; PULSE 90; RESP 18; TEMP 36.6; O2SAT 99
[2021-06-07] MEDS: traZODone 50 MG Tablet PO (21:10)
[2021-06-08 03:33] VITALS: BP 121/76; PULSE 93; RESP 16; TEMP 36.9; O2SAT 96
[2021-06-08 06:49] LABS: Absolute Lymphocyte Count 1.28 X10^3/uL (0.83-4.51); Absolute Neutrophil Count 4.9 X10^3/uL (2.0-7.7); Basophil# 0.06 X10^3/uL; Basophil% 0.9 % (0-1); Eosinophils% 1.4 % (0-5); Hematocrit 31.4 % (37-47); Hemoglobin 9.5 g/dL (12.0-15.0); Lymphocyte # 1.28 X10^3/ul (0.83-4.51); Lymphocyte % 18.5 % (19-41); Mean Corp Hgb Conc 30.3 g/dL (32-36); Mean Corpuscular Volume 92.6 fL (81-99); Mean Platelet Vol. 10.4 fl (6.2-12.0); Monocyte# 0.47 X10^3/uL; Monocyte% 6.8 % (0-10); NRBC Flagged by Analyzer 0 % (0-5); POSITIVE MORPHOLOGY YES; Platelet Count 292 K/mm3 (150-450); RBC Distribution Width CV 18.1 % (11.6-14.6); RBC Distribution Width SD 61.2 fl (35.1-43.9); Red Blood Count 3.39 M/mm3 (4.2-5.4); White Blood Count 6.9 K/mm3 (4.4-11.0)
[2021-06-08 06:53] LABS: Differential Indicated SCAN CRITERIA MET
[2021-06-08 07:12] LABS: Atypical Lymphocyte RARE %; Differential Comment SCANNED
[2021-06-08 08:04] LABS: ALB/GLOB Ratio 0.5 RATIO (0.9-2.4); AST(SGOT) 12 U/L (15-37); Alanine Aminotransfer ALT/SGPT 12 U/L (13-56); Alkaline Phosphatase 38 U/L (45-117); Anion Gap 6 (5-15); BUN 40 mg/dL (7-18); BUN/Creat Ratio 7.6 RATIO (10-20); Calcium,Total 8.4 mg/dL (8.5-10.1); Chloride 118 mmol/L (98-107); Creatinine, Serum 5.28 mg/dL (0.55-1.02); EST Glomerular Filtration Rate 11 mL/min (>60); Est Glom Filt Rate - Afr Amer 13 mL/min (>60); Estimated Creatinine Clearance 12.86 ml/min; Globulin 4.3 g/dL (2.2-4.2); Glucose 103 mg/dL (74-106); Potassium 4.3 mmol/L (3.5-5.1); Protein, Total 6.3 g/dL (6.4-8.2); Sodium Level 140 mmol/L (136-145)
[2021-06-08 08:57] VITALS: BP 121/75; PULSE 88; RESP 16; TEMP 36.8; O2SAT 97
[2021-06-08] MEDS: cycloBENZAPRine HCl 10 MG Tablet PO (09:06)
[2021-06-08] MEDS: Sertraline 100 MG Tablet PO (09:06)
[2021-06-08] MEDS: Famotidine 20 MG Tablet PO (09:06)
[2021-06-08] MEDS: Potassium Chloride Oral Tablet 20 MEQ PO (09:06)
[2021-06-08] MEDS: Heparin Injection (Vial) 5,000 UNIT/ML VIAL 5000 UNIT SC (09:50)
[2021-06-08] MEDS: 0.9% Saline Lock 10 ML Syringe IV (09:51)
--- NOTE | 2021-06-08 13:18 | PN.HOSP_ITS ---
Subjective Subjective Declined further IVF given edema. States that she is urinating well. Objective Data Objective Data Vital Signs: Vital Signs Temp Pulse Resp BP Pulse Ox 36.8 C 88 16 121/75 H 97 06/08/21 08:57 06/08/21 08:57 06/08/21 08:57 06/08/21 08:57 06/08/21 08:57 Oxygen Delivery Method Room Air Weight: 61.28 kg Body Mass Index (BMI) 21.6 Intake & Output: Intake and Output for Last 24 Hours 06/06/21 06/07/21 06/08/21 23:59 23:59 23:59 Intake Total 4310 / 4310 3350.0 / 3830.0 1080 / 1080 Output Total 275 / 275 400 / 400 Balance 4035 / 4035 3350.0 / 3830.0 680 / 680 Lab / Micro Data Result Diagrams: 06/08/21 06:37 06/08/21 06:37 Labs: Laboratory Results - last 24 hr 06/08/21 06:37: WBC 6.9, RBC 3.39 L, Hgb 9.5 L, Hct 31.4 L, MCV 92.6, MCH 28.0, MCHC 30.3 L, RDW Std Deviation 61.2 H, RDW Coeff of Yaima 18.1 H, Plt Count 292, MPV 10.4, Immature Gran % (Auto) 1.400 H, Neut % (Auto) 71.0 H, Lymph % (Auto) 18.5 L, [place] % (Auto) 6.8, Eos % (Auto) 1.4, Baso % (Auto) 0.9, Absolute Neuts (auto) 4.9, Absolute Lymphs (auto) 1.28, Nucleated RBC % 0, Differential Comment SCANNED, Atypical Lymphocytes RARE 06/08/21 06:37: Sodium 140, Potassium 4.3, Chloride 118 H, Carbon Dioxide 16.0 L , Anion Gap 6, BUN 40 H, Creatinine 5.28 H, Estim Creat Clear Calc 12.86, Est GFR (MDRD) Af Amer 13 L, Est GFR (MDRD) Non-Af 11 L, BUN/Creatinine Ratio 7.6 L, Glucose 103, Calcium 8.4 L, Total Bilirubin 0.70, AST 12 L, ALT 12 L, Alkaline Phosphatase 38 L, Total Protein 6.3 L, Albumin 2.0 L, Globulin 4.3 H, Albumin/Globulin Ratio 0.5 L Micro: Microbiology 06/05/21 18:05 Blood Culture (Wb) - Right Forearm Blood Culture - Preliminary 06/05/21 15:26 Blood Culture (Wb) - Anticubital Right Blood Culture - Preliminary Staphylococcus aureus 06/06/21 19:14 Stool C. difficile DNA Amplification - Final 06/05/21 09:00 Urine, Clean Catch Urine Culture - Final Mixed Gram Positive Organisms 06/04/21 15:40 Blood Culture (Wb) - Left Forearm Bacteria Detection (PCR) - Final Staphylococcus aureus mecA Resistance Marker 06/04/21 15:40 Blood Culture (Wb) - Left Forearm Blood Culture - Final Meth. resistant Staph. aureus 06/04/21 18:25 Blood Culture (Wb) - Left Forearm Blood Culture - Final Staphylococcus aureus 06/04/21 15:30 Nasal Secretion SARS-CoV-2 Antigen (Rapid) - Final Physical Exam Const alert and no apparent distress Constitutional Narrative: sleeping when I arrive. Awoken easily. Resp normal respiratory effort, no retractions and no use of accessory muscles Cardio regular rate, regular rhythm, S1 normal heart sound and S2 normal heart sound GI normal to inspection, nondistended, normoactive bowel sounds, soft to palpation and non-tender GI Narrative: distended. back edema Extremity General Extremity: edema Skin no rashes or lesions noted Neuro Sensorium / Orientation: awake and alert Assessment & Plan Assessment/Plan (1) Bacteremia: (2) ELOISA (acute kidney injury): (3) Hypokalemia: (4) Fever: QUALIFIERS: Fever type: unspecified Qualified Code(s): R50.9 - Fever, unspecified PLAN: 1. Bacteremia S. aureus, MRSA concern for bioprostetic heart valve endocarditis given prior history Pt wants to be transferred to , not [facility] 06/05: DW Dr. [place] at and pt has been accepted, but bed availability pending. continue vanc. 06/07: TTE showed no vegetation. Will need TIERNEY, but will defer to tertiary facility. Repeat BCx. 2. Acute kidney injury FENA 5.97% Nephrotic syndrome?: increasing 3rd spacing, elevated protein on UA, Renal ultrasound negative for acute process Continue to hold furosemide which patient states that she has not been taking much lately anyway. Consult nephrology. Strict IsOs, if able. Concern pt may not comply with acute IsOs. Check 24h protein and creatining Worse despite IVF. 3. Hypokalemia resolved 4. Fever Blood cultures performed in the ER UA negative for UTI Concern is for recurrent endocarditis or other infectious etiology. Currently afebrile but patient did take acetaminophen prior to arrival. 5. History of tricuspid valve bioprosthetic endocarditis Patient was to follow-up with [facility] infectious disease unit in the coming weeks Follow-up on blood cultures and if positive may need to reconsider checking echocardiogram or transfer to [facility] 6. VTE prophylaxis with subcu heparin Awaiting on bed opening up at [facility]. Charges/Coding Visit Charges Inpatient E&M: 34598 Subs Hosp L2
[2021-06-08 15:05] VITALS: BP 133/81; PULSE 84; RESP 16; TEMP 37; O2SAT 100
--- NOTE | 2021-06-08 15:18 | PCM.CONS.R ---
Assessment & Plan Assessment/Plan (1) ELOISA (acute kidney injury): (2) Bacteremia: (3) Metabolic acidosis: (4) Fluid overload: PLAN: Patient had normal creatinine 2 months ago. 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 Creatinine is up to 5.2. Oliguric. Has metabolic acidosis There is no urgent need for renal placement therapy today. Patient likely will need renal placement therapy in the coming 24 to 48 hours Unfortunately patient is going to sign AMA. Patient told me she is going to go to other hospital to get admitted. I educated the patient about the seriousness of her kidney disease. I will give the patient 1 dose of Lasix 80 mg IV Patient is on vancomycin for bacteremia. TTE is negative for endocarditis or vegetation Thank you for the consult. Renal team continue to follow. Plan of care was discussed with Dr. 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 Patient was recently treated for tricuspid endocarditis with a bloodstream infection 2 months ago which was treated with 6 weeks of antibiotics Patient presented this time with fatigue and fever of 103. Patient was found to have MRSA bacteremia Renal team was consulted for acute kidney injury. Patient presented with a creatinine 3.5 and has been increasing steadily since admission. Creatinine up to 5.2 mg deciliter Patient has been IV fluid since admission which stopped today due to anasarca and ascites. Patient seems oliguric. Denied nausea vomiting. Admitted having poor appetite Some shortness of breath with movement No skin rash. No gross hematuria Denies NSAID use. No IV contrast exposure Renal ultrasound negative for hydronephrosis UA showed more than 100 RBCs and protein 500 Patient is going to sign AMA to to go to [facility] Review of system: 12 system review is negative except edema, increase abdomen girth, poor appetite some shortness of breath exertion [facility] Medical History (Updated 06/08/21 @ 15:[address] Yue Pierre MD) Anemia Anxiety Depression History of cardiac pacemaker Osteoporosis Pacemaker Smoker Substance abuse Home Medications cyclobenzaprine 10 mg PO BID 06/04/21 [History Last Taken 2 Days Ago ~06/02/21] famotidine 20 mg PO DAILY 06/04/21 [History Last Taken 2 Days Ago ~06/02/21] furosemide 40 mg PO DAILY 06/04/21 [History Last Taken 2 Days Ago ~06/02/21] potassium chloride [Klor-Con M20] 20 meq PO DAILY 06/04/21 [History Last Taken 2 Days Ago ~06/02/21] sertraline 100 mg PO DAILY 06/04/21 [History Last Taken 2 Days Ago ~06/02/21] trazodone 50 mg PO DAILY 06/04/21 [History Last Taken 2 Days Ago ~06/02/21] Allergy/AdvReac Type Severity Reaction Status Date / Time Iodinated Contrast Media [CT] Allergy Hives Verified 06/04/21 14:45 Social History Smoking Status: Current every day smoker tobacco type: cigarettes alcohol intake: never substance use type: does not use Physical Exam Narrative Patient is awake alert oriented. Head atraumatic normocephalic Neck no JVD. Mouth wet oral mucosa Skin no skin rash Heart S1-S2 RRR Chest bilateral crackles over both lung spaces Abdomen distended no tenderness. Positive bowel sounds no rigidity Neurology awake alert oriented x3 nonfocal Extremity +1 edema of lower extremities Lab / Micro Data Result Diagrams: 06/08/21 06:37 06/08/21 06:37 Labs: Laboratory Results - last 24 hr 06/08/21 06:37: WBC 6.9, RBC 3.39 L, Hgb 9.5 L, Hct 31.4 L, MCV 92.6, MCH 28.0, MCHC 30.3 L, RDW Std Deviation 61.2 H, RDW Coeff of Yaima 18.1 H, Plt Count 292, MPV 10.4, Immature Gran % (Auto) 1.400 H, Neut % (Auto) 71.0 H, Lymph % (Auto) 18.5 L, [place] % (Auto) 6.8, Eos % (Auto) 1.4, Baso % (Auto) 0.9, Absolute Neuts (auto) 4.9, Absolute Lymphs (auto) 1.28, Nucleated RBC % 0, Differential Comment SCANNED, Atypical Lymphocytes RARE 06/08/21 06:37: Sodium 140, Potassium 4.3, Chloride 118 H, Carbon Dioxide 16.0 L, Anion Gap 6, BUN 40 H, Creatinine 5.28 H, Estim Creat Clear Calc 12.86, Est GFR (MDRD) Af Amer 13 L, Est GFR (MDRD) Non-Af 11 L, BUN/Creatinine Ratio 7.6 L, Glucose 103, Calcium 8.4 L, Total Bilirubin 0.70, AST 12 L, ALT 12 L, Alkaline Phosphatase 38 L, Total Protein 6.3 L, Albumin 2.0 L, Globulin 4.3 H, Albumin/Globulin Ratio 0.5 L Micro: Microbiology 06/05/21 18:05 Blood Culture (Wb) - Right Forearm Blood Culture - Preliminary 06/05/21 15:26 Blood Culture (Wb) - Anticubital Right Blood Culture - Preliminary Staphylococcus aureus 06/06/21 19:14 Stool C. difficile DNA Amplification - Final
--- NOTE | 2021-06-08 15:20 | NURSING ---
Addendum entered by Urmila Kimble 06/08/21 15:56: updated [facility] that transfer request is cancelled due to pt leaving AMA Addendum entered by Urmila Kimble 06/08/21 15:34: upon entering room to give IV lasix, pt refused stating she doesn't want to have to void during the drive to [facility]. Original Note: pt told this RN that she had talked with her mom and they decided that they wanted to leave here and drive to [facility]. explained that she would be leaving against medical advice and that her transfer to [facility] would be forfeited. Dr Bass to pt room and explained the same, explaining to pt that she is critically sick and if she leaves and goes to another hospital, they will have to start from scratch for further transfers and running tests. he explained the risks of leaving and pt verbalized understanding. Dr Simon to room and discussed pt status. discussed kidney function and that if pt were to stay here, he would likely start her on dialysis tomorrow. pt still expresses wanting to sign out AMA, Dr Simon offered dose of lasix prior to leaving and pt agreeable.
--- NOTE | 2021-06-08 15:25 | DS.PCM_ITS ---
Providers Date of Admission: 06/04/21 Primary Care Physician: Giselle Primary Care Phys Consultations 06/07/21 14:34 Consult: Nephrology Routine Consulting Provider: Yue Pierre Reason for Consult: ELOISA EMERGENT Consult: No MD Notified: Yes Date Notified: 06/07/21 Time Notified: 17:42 Method of Notification: Answering Service Reason For Visit: ELOISA Diagnosis Discharge Diagnosis (1) Bacteremia: Status: Acute Code(s): R78.81 - Bacteremia (2) ELOISA (acute kidney injury): Status: Acute Code(s): N17.9 - Acute kidney failure, unspecified (3) Hypokalemia: Status: Acute Code(s): E87.6 - Hypokalemia (4) Fever: Status: Acute Code(s): R50.9 - Fever, unspecified Qualifiers: Fever type: unspecified Qualified Code(s): R50.9 - Fever, unspecified Medications at Discharge Home Medications cyclobenzaprine 10 mg PO BID 06/04/21 famotidine 20 mg PO DAILY 06/04/21 furosemide 40 mg PO DAILY 06/04/21 potassium chloride [Klor-Con M20] 20 meq PO DAILY 06/04/21 sertraline 100 mg PO DAILY 06/04/21 trazodone 50 mg PO DAILY 06/04/21 Hospital Course Operations None Procedures 2-D Echocardiogram Summary of Care Provided Minutes Spent on Discharge: 45 Hospital Course: 35-year-old female presents with fevers. Eventually found to be bacteremic with MRSA. 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 Patient had been seen at [facility] in March and then transferred to [facility] complete 6-week course of antibiotics for MSSA bacteremia and endocarditis. Patient had been doing well up until this point. Patient stated that with bacteremia that she would want to be transferred to [facility] for the valve was initially placed. They reached out and spoke to Dr. France who agreed to accept the patient on the first. Was made aware that it would be another day or 2 before the patient could be brought over there. This was relayed to the patient that they would not have any available beds right away. So patient had repeat blood cultures that were showing staph aureus. 2D echocardiogram was unremarkable for any vegetation. Patient is advised that she would need a transvaginal echocardiogram for better visualization but would defer to the tertiary facility for that. Additionally, patient had acute kidney injury and creatinine steadily got worse. Nephrology was consulted and saw the patient and was concerned for patient needing renal replacement therapy and a kidney biopsy. At that point in time by the time they evaluated the patient and her mother made decision to go to another hospital. I told the patient that if she leaves AGAINST MEDICAL ADVICE she is at further risk of harm with her bacteremia which could lead to worsening illness amongst other issues. I told her that she needs to be on IV antibiotics and that she needs to be seen by other physicians actively. Patient informed myself and additional staff that she would be going to [facility]. I told the patient that if she leaves AGAINST MEDICAL ADVICE that she may lose her place over at [facility]. It is still unclear when they would be able to accept her for that would if she were to remain here that would be today or not. The patient did meet with nephrology and patient still insist on leave AGAINST MEDICAL ADVICE. Patient has progressively gotten more edematous with swelling in her legs as well as her abdomen. She was receiving IV fluids with acute kidney injury. Weight / BMI Weight Weight: 61.28 kg Body Mass Index (BMI) 21.6 ABG / Lab / Microbiology Data Result Diagrams: 06/08/21 06:37 06/08/21 06:37 Laboratory: Laboratory Results - last 24 hr 06/08/21 06:37: WBC 6.9, RBC 3.39 L, Hgb 9.5 L, Hct 31.4 L, MCV 92.6, MCH 28.0, MCHC 30.3 L, RDW Std Deviation 61.2 H, RDW Coeff of Yaima 18.1 H, Plt Count 292, MPV 10.4, Immature Gran % (Auto) 1.400 H, Neut % (Auto) 71.0 H, Lymph % (Auto) 18.5 L, [place] % (Auto) 6.8, Eos % (Auto) 1.4, Baso % (Auto) 0.9, Absolute Neuts (auto) 4.9, Absolute Lymphs (auto) 1.28, Nucleated RBC % 0, Differential Comment SCANNED, Atypical Lymphocytes RARE 06/08/21 06:37: Sodium 140, Potassium 4.3, Chloride 118 H, Carbon Dioxide 16.0 L , Anion Gap 6, BUN 40 H, Creatinine 5.28 H, Estim Creat Clear Calc 12.86, Est GFR (MDRD) Af Amer 13 L, Est GFR (MDRD) Non-Af 11 L, BUN/Creatinine Ratio 7.6 L, Glucose 103, Calcium 8.4 L, Total Bilirubin 0.70, AST 12 L, ALT 12 L, Alkaline Phosphatase 38 L, Total Protein 6.3 L, Albumin 2.0 L, Globulin 4.3 H, Albumin/Globulin Ratio 0.5 L Microbiology: Microbiology 06/05/21 18:05 Blood Culture (Wb) - Right Forearm Blood Culture - Preliminary 06/05/21 15:26 Blood Culture (Wb) - Anticubital Right Blood Culture - Preliminary Staphylococcus aureus 06/06/21 19:14 Stool C. difficile DNA Amplification - Final 06/05/21 09:00 Urine, Clean Catch Urine Culture - Final Mixed Gram Positive Organisms 06/04/21 15:40 Blood Culture (Wb) - Left Forearm Bacteria Detection (PCR) - Final Staphylococcus aureus mecA Resistance Marker 06/04/21 15:40 Blood Culture (Wb) - Left Forearm Blood Culture - Final Meth. resistant Staph. aureus 06/04/21 18:25 Blood Culture (Wb) - Left Forearm Blood Culture - Final Staphylococcus aureus 06/04/21 15:30 Nasal Secretion SARS-CoV-2 Antigen (Rapid) - Final Meaningful Use Info Meaningful Use Diagnoses (Choose all that apply): None applicable Discharge Plan Admission Admit Date/Time: 06/04/21 18:17 Attending Provider: Al Bass Primary Care Provider: Care Physician,No Primary Consulting Providers: Yue Pierre Discharge Orders/Prescriptions Prescriptions: No Action cyclobenzaprine 10 mg tablet 10 mg PO BID RF: 0 furosemide 40 mg tablet 40 mg PO DAILY RF: 0 trazodone 50 mg tablet 50 mg PO DAILY RF: 0 sertraline 100 mg tablet 100 mg PO DAILY RF: 0 potassium chloride [Klor-Con M20] 20 mEq tablet,ER particles/crystals 20 meq PO DAILY RF: 0 famotidine 20 mg tablet 20 mg PO DAILY RF: 0 Referrals / Follow Up: Care Physician,No Primary [Primary Care Provider] - Disposition Disposition (needs filled in before D/C Order can be placed): Against Medical Advice Charges/Coding Visit Charges Inpatient E&M: 11606 Disch Hosp
== END 2021-06-08 15:30 | disposition left against medical advice (07) | DRG 469 ==
LOC: ED 17:13 → MS3 19:04
PROVIDERS: Hospitalist; Emergency Provider Emergency Medicine
DX: N17.0 Acute kidney failure with tubular necrosis (principal); B95.62 Methicillin resistant Staphylococcus aureus infection as the cause of diseases classified elsewhere; E87.2 Acidosis; E87.6 Hypokalemia; R50.9 Fever, unspecified; Z86.79 Personal history of other diseases of the circulatory system; F17.210 Nicotine dependence, cigarettes, uncomplicated
CPT/HCPCS: 36415; 71045; 74018; 76770; 80048; 80053; 80202; 81001; 82570; 83605; 83735; 84300; 84703; 85025; 87040; 87077; 87086; 87088; 87149; 87186; 87426; 87493; 93306; 99285; 99406; J7030; J7050; A4216; J2405

== ENCOUNTER 2021-12-04 07:58 | Outpatient (CLI) | payer MEDICAID, SELFPAY ==
--- NOTE | 2021-12-04 08:03 | MRI_ITS ---
STUDY: MRI LEFT ANKLE WITHOUT CONTRAST REASON FOR EXAM: Left anterior ankle pain, ankle sprain. TECHNIQUE: Standardized fat and water weighted pulse sequences were obtained in all 3 orthogonal planes. COMPARISON: CT images 04/19/2020. FINDINGS: Normal subcutis adipose space. Normal posterior tibialis tendon. Normal flexor digitorum longus tendon. Normal flexor hallucis longus tendon. Normal peroneus longus and brevis tendons. Normal tibialis anterior tendon. Normal extensor hallucis longus tendon. Normal extensor digitorum longus tendons. There is mild distal Achilles tendinosis (inversion recovery sagittal image 10) without tendon tear. Normal plantar fascia. Normal plantar calcaneal tubercles. Normal intrinsic muscles of the rearfoot. Normal distal tibiofibular syndesmotic ligamentous complex. There is mild thickening and interstitial edema in the anterior talofibular ligament (inversion recovery axial series 10 image 15) consistent with ligament sprain. Normal calcaneofibular and posterior talofibular ligaments. Normal subtalar ligaments and sinus tarsi. Normal deltoid ligamentous complexes. Normal plantar calcaneonavicular (spring) ligament. There is diffuse chondral thinning of the tibiotalar articulation (T1 sagittal images 8-10) and subchondral bone edema of the distal tibia and talar dome (inversion recovery sagittal images 7-11). There is a tibiotalar joint effusion with synovial thickening (T1 sagittal images 8-11). Normal subtalar articulations. There is a small talonavicular joint effusion (inversion recovery sagittal images 8, 9). There is bone edema of the head/neck of the talus (inversion recovery sagittal images 6-8), a stress phenomenon. Normal calcaneocuboid articulation. Normal navicular-cuneiform articulations. There is diffuse patchy foci of increased inversion recovery signal in the distal tibia and tarsal bones of the midfoot and hindfoot (inversion recovery sagittal images 5-15) suggestive of osteopenia. MRI/Lower Ext Joint Only (Routine) IMPRESSION: Anterior talofibular ligament sprain. Chondral thinning of the tibiotalar articulation with subchondral bone edema and tibiotalar joint effusion with synovial thickening, suggestive of arthropathy, possibly chronic septic arthritis. Bone edema of the head/neck of the talus, a stress phenomenon. Mild distal Achilles tendinosis. Talonavicular joint effusion. Diffuse patchy foci of increased inversion recovery signal in the distal tibia and tarsal bones of the hindfoot and midfoot, suggestive of osteopenia. Electronically Signed: Murtaza Linton MD at 11:25 EST ,
== END 2021-12-04 23:59 | disposition home or self-care (01) ==
LOC: MRI 08:01
PROVIDERS: Referring Provider Podiatrist; Visit Provider Podiatrist
DX: S93.432A Sprain of tibiofibular ligament of left ankle, initial encounter (principal)
CPT/HCPCS: 73721

== ENCOUNTER 2023-04-18 09:54 | Emergency (ER) | payer MEDICAID, SELFPAY ==
[2023-04-18 09:54] VITALS: BP 143/78; PULSE 82; RESP 14; TEMP 36.1; O2SAT 100; BMI 22.4
--- NOTE | 2023-04-18 10:48 | RAD_ITS ---
STUDY: X-RAY - RIGHT HAND REASON FOR EXAM: Female, 27 years old. trauma, pain, swelling TECHNIQUE: 3 view(s) of the hand. COMPARISON: None. FINDINGS: Normal radiocarpal articulation. Normal distal radioulnar joint. Normal visualized carpal bones. Normal carpal articulations Normal carpometacarpal articulation of the thumb. Normal second through fifth carpometacarpal joints. Irregularity of the base of the fifth metacarpal bone may represent a subtle fracture. Normal metacarpophalangeal joint of the thumb. Normal interphalangeal joint of the thumb. Normal proximal and distal phalanges of the thumb. Normal metacarpophalangeal joints of the second through fifth fingers. Normal proximal and distal interphalangeal joints of the second through fifth fingers. Normal phalanges of the second through fifth fingers. The soft tissue structures are unremarkable. RAD/Hand Min 3 Views IMPRESSION: Suspect subtle fracture of the base of the fifth metacarpal bone. CT may be useful. Electronically Signed: Chano Gibbons MD at 11:37 EDT ,
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
[2023-04-18] MEDS: HYDROcodone Bitartrate/Apap 5/325 Tablet PO (12:19)
== END 2023-04-18 12:23 | disposition home or self-care (01) ==
PROVIDERS: Emergency Provider Emergency Medicine; Visit Provider Emergency Medicine
DX: S62.91XA Unspecified fracture of right hand, initial encounter for closed fracture (principal); S00.81XA Abrasion of other part of head, initial encounter; F17.290 Nicotine dependence, other tobacco product, uncomplicated; V28.49XA Other motorcycle driver injured in noncollision transport accident in traffic accident, initial encounter
CPT/HCPCS: 29125; 73130; 99283

== ENCOUNTER 2023-04-21 22:32 | Emergency (ER) | payer MEDICAID, SELFPAY ==
[2023-04-21 22:33] VITALS: BP 115/63; PULSE 66; RESP 16; TEMP 36.4; O2SAT 98; BMI 22.2
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
== END 2023-04-21 23:04 | disposition home or self-care (01) ==
PROVIDERS: Emergency Provider Emergency Medicine; Visit Provider Emergency Medicine
DX: S62.91XD Unspecified fracture of right hand, subsequent encounter for fracture with routine healing (principal); F17.290 Nicotine dependence, other tobacco product, uncomplicated; W05.1XXD Fall from non-moving nonmotorized scooter, subsequent encounter
CPT/HCPCS: 29125; 99282

== ENCOUNTER → 2023-05-27 | Outpatient (CLI) | payer MEDICAID, SELFPAY ==
--- NOTE | 2023-05-27 14:15 | CT_ITS ---
STUDY: CT RIGHT HAND REASON FOR EXAM: Female, 27 years old. Follow-up of fracture of base of fifth metacarpal. RADIATION DOSAGE (If Supplied By Facility): CTDIvol = ( 24.58 ) mGy, DLP = ( 493.00 ) mGycm TECHNIQUE: Thin section transaxial imaging of the foot was obtained, with sagittal and coronal reconstructed images. Individualized dose optimization techniques were used for this CT. COMPARISON: Right hand images dated April 24, 2023 and April 18, 2023. FINDINGS: Comminuted nondisplaced fracture of the base of the fifth metatarsal. Fracture is unchanged compared to the prior comparison hand x-rays. Minimal soft tissue swelling. CT/Extremity Upper without Contra IMPRESSION: Subtle nondisplaced comminuted base of fifth metatarsal fracture as described. Electronically Signed: Hola Diallo MD at 15:01 EDT ,
== END | disposition home or self-care (01) ==
LOC: CT 14:14
DX: M19.072 Primary osteoarthritis, left ankle and foot (principal)
CPT/HCPCS: 73200